=== PATIENT | female | born 1945 | race Caucasian/White ===

== ENCOUNTER 2016-02-18 11:44 | Inpatient (IN) | payer OTHER ==
--- NOTE | 2016-02-18 12:14 | PROVIDER DOCUMENTATION ---
HPI-Respiratory General - General Chief Complaint: Shortness of Breath Stated Complaint: PNEUMONIA Time Seen by Provider: 02/18/16 11:55 Source: patient Allergies/Adverse Reactions: Patient Allergies Allergy/AdvReac Type Severity Reaction Status Date / Time codeine [Codeine] Allergy Severe ITCHING Verified 02/18/16 12:25 Home Medications: Atorvastatin Calcium [Lipitor] 80 mg PO QPM 07/11/12 Clonazepam 0.5 mg PO QPM 07/11/12 Clopidogrel Bisulfate [Plavix] 75 mg PO QPM 07/11/12 Hydrocodone Bit/Acetaminophen [Hydrocodon-Acetaminoph 7.5-500] 1 each PO PRN PRN 07/11/12 Levothyroxine [Synthroid] 88 microgm PO QPM 07/11/12 Docusate Sodium [Colace] 100 mg PO QAM 03/05/15 Nortriptyline HCl [Pamelor] 10 mg PO QPM 03/05/15 Polyethylene Glycol 3350 [Miralax] 17 gm PO DAILY 03/05/15 - History of Present Illness-Resp Nature of Presenting Problem: 70 y/o F presents to ED cc of SOB. Pt states recently been admitted for pneumonia. Pt was discharged and has not regained all strength adn has had increased weakness since home. Pt does dialysis at home every night. Daughter states they have been leaving with pt since she has been discharged. Daughter states last night pt became confused and could not sleep. Pt states she is having pain all over. Quality of Pain: reports: aching Severity in ED: reports: mild Onset/Duration: reports: gradual Timing: reports: still present Context: denies: recent foreign travel Exposure: reports: unknown cause Cough Quality/Degree: reports: mild Episode Frequency: no prior episodes Current Respiratory Medication Therapy: Initiated see nurses note Associated Symptoms: reports: chest pain/soreness, muscle/bodyaches, shortness of breath. denies: fever/chills Similar Symptoms Previously?: Yes Recently seen or treated by another doctor?: Yes Review of Systems - Adult - REVIEW OF SYSTEMS - ADULT ROS:: ROS per family Constitutional: denies: chills, fever Cardiovascular: denies: chest pain, palpitations Respiratory: reports: cough, shortness of breath Gastrointestinal: denies: abdominal pain, diarrhea, nausea, vomiting Musculoskeletal: reports: muscle aches (all over). denies: back pain Neurological: denies: dizziness/vertigo, headache/migraines Past History - Adult - PAST MEDICAL HISTORY-ADULT Review of Records: reports: Old Records Reviewed, Nursing Assessment Review Cardiovascular: reports: CAD, HTN, hyperlipidemia, [place] Gastrointestinal: reports: GERD Genitourinary: reports: dialysis (peritoneal), ESRD Psychiatric: reports: anxiety Endocrine/Immune: reports: Diabetes, thyroid disorder (hypothyroidism) - PRIOR SURGERIES/PROCEDURES Surgical/Procedure History: reports: cholecystectomy, hysterectomy, other ( bilateral cataracts/colonoscopy) - IMMUNIZATION STATUS Childhood Immunizations: See Nurse Assessment Flu Vaccine: See Nurse Assessment - SOCIAL HISTORY Smoking: quit greater than 1 year Substance Use: denies Alcohol Use Frequency: never Living Situation: family (daughter) Physical Exam-General - PHYSICAL EXAM-ADULT Initial Vital Signs Reviewed: Yes - CONSTITUTIONAL General Appearance: appears well, alert, no apparent distress - EYES Eyes: PERRL/EOMI, pink conjunctivae - HEAD, EARS, NOSE, MOUTH & THROAT HENMT: normocephalic/atraumatic, moist mucous membranes, normal ENT inspection - NECK Neck: non-tender, full range of motion - RESPIRATORY Respiratory: chest non-tender, increased rate - CARDIOVASCULAR Cardiovascular: normal peripheral pulses, tachycardia - CHEST (BREASTS) Chest/Breast: deferred - GASTROINTESTINAL (ABDOMEN) Abdominal Exam: normal bowel sounds, non tender, soft - LYMPHATIC Lymphatic: no adenopathy - MUSCULOSKELETAL Back Exam: normal inspection, no CVA tenderness, no vertebral tenderness Extremity: normal range of motion, pedal edema - SKIN Integumentary: normal color, normal turgor - NEUROLOGIC Neurologic: promotions intern II-XII nml as tested, grossly normal - PSYCHIATRIC Psych/Mental Status: oriented x 3 Progress - PLAN OF CARE/RESULTS Progress/Plan/Lab Results: PLAN: LAB WORK, CHEST XRAY. 1305- DR SHAW NOTIFIED PT QUALIFIES FOR SEPSIS PROTOCOL. Laboratory Tests 02/18/16 02/18/16 02/18/16 12:09 12:09 12:09 WBC 13.57 H RBC 5.03 Hgb 15.0 Hct 45.6 MCV 90.7 MCH 29.8 MCHC 32.9 L RDW Std Deviation 15.4 H Plt Count 210 MPV 12.1 H Immature Gran % (Auto) 0.1 Neut % (Auto) 85.5 H Lymph % (Auto) 8.6 L [place] % (Auto) 5.1 Eos % (Auto) 0.3 Baso % (Auto) 0.4 Immature Gran # (Auto) 0.02 Neut # 11.59 H Lymph # 1.17 L [place] # 0.69 H Eos # 0.04 Baso # 0.06 Segmented Neutrophils 86 H Lymphocytes 12 L Monocytes 2 PT INR PTT (Actin FS) Specimen Type Sample Site pH pCO2 pO2 HCO3 Base Excess Oxyhemoglobin ABG O2 Sat (Calculated) ABG O2 Saturation ABG Carboxyhemoglobin ABG Methemoglobin Alexandro Test A-a O2 Difference Total Hemoglobin Lactate Liter Flow Blood Gas Modality FiO2 % Sodium 130 L Potassium 4.6 Chloride 89 L Carbon Dioxide 23 L Anion Gap 18 BUN 39 H Creatinine 2.7 H Estimated GFR/1.73 m2 17 BUN/Creatinine Ratio 14 Glucose 383 H Calculated Osmolality 286 Calcium 9.0 Magnesium Total Bilirubin 0.57 AST 22 ALT 24 Alkaline Phosphatase 121 H Creatine Kinase 33 Troponin T Hzw-[id number]-Rzjlichlkfb Pept Total Protein 6.8 Albumin 3.2 L Globulin 3.6 Albumin/Globulin Ratio 0.9 Plasma Lactate 2.5 H 02/18/16 02/18/16 02/18/16 12:09 12:09 12:09 WBC RBC Hgb Hct MCV MCH MCHC RDW Std Deviation Plt Count MPV Immature Gran % (Auto) Neut % (Auto) Lymph % (Auto) [place] % (Auto) Eos % (Auto) Baso % (Auto) Immature Gran # (Auto) Neut # Lymph # [place] # Eos # Baso # Segmented Neutrophils Lymphocytes Monocytes PT 11.4 INR 1.07 PTT (Actin FS) 25.2 Specimen Type Sample Site pH pCO2 pO2 HCO3 Base Excess Oxyhemoglobin ABG O2 Sat (Calculated) ABG O2 Saturation ABG Carboxyhemoglobin ABG Methemoglobin Alexandro Test A-a O2 Difference Total Hemoglobin Lactate Liter Flow Blood Gas Modality FiO2 % Sodium Potassium Chloride Carbon Dioxide Anion Gap BUN Creatinine Estimated GFR/1.73 m2 BUN/Creatinine Ratio Glucose Calculated Osmolality Calcium Magnesium Total Bilirubin AST ALT Alkaline Phosphatase Creatine Kinase Troponin T 0.081 Kvu-C-Aqezewjsdwr Pept > 15541 H Total Protein Albumin Globulin Albumin/Globulin Ratio Plasma Lactate 02/18/16 02/18/16 12:09 13:11 WBC RBC Hgb Hct MCV MCH MCHC RDW Std Deviation Plt Count MPV Immature Gran % (Auto) Neut % (Auto) Lymph % (Auto) [place] % (Auto) Eos % (Auto) Baso % (Auto) Immature Gran # (Auto) Neut # Lymph # [place] # Eos # Baso # Segmented Neutrophils Lymphocytes Monocytes PT INR PTT (Actin FS) Specimen Type ARTERIAL Sample Site R RADIAL pH 7.41 pCO2 34 L pO2 72 HCO3 23.0 Base Excess -2.3 Oxyhemoglobin 93.1 L ABG O2 Sat (Calculated) 19.0 ABG O2 Saturation 97.2 ABG Carboxyhemoglobin 2.60 H ABG Methemoglobin 1.6 H Alexandro Test YES A-a O2 Difference 85.0 Total Hemoglobin 14.5 Lactate 2.70 H Liter Flow 2.0 Blood Gas Modality CANNULA FiO2 % 28.0 Sodium Potassium Chloride Carbon Dioxide Anion Gap BUN Creatinine Estimated GFR/1.73 m2 BUN/Creatinine Ratio Glucose Calculated Osmolality Calcium Magnesium 1.7 Total Bilirubin AST ALT Alkaline Phosphatase Creatine Kinase Troponin T Tex-R-Epcivllrfsu Pept Total Protein Albumin Globulin Albumin/Globulin Ratio Plasma Lactate Orders Category Date Time Status Cardiac Monitoring DIRECTED Care 02/18/16 11:50 Active IV Insertion ORDERED Care 02/18/16 11:50 Active Notify MD of + Sepsis Screen NOW Care 02/18/16 11:50 Active CHEST-PORTABLE [RAD] Stat Exams 02/18/16 11:50 Taken ABG [RESP] Routine Lab 02/18/16 13:11 Completed BLOOD CULTURE [BLDCUL] Stat Lab 02/18/16 12:19 Results BNP [PRO B-NATRIURETIC PEPTIDE] Stat Lab 02/18/16 12:09 Completed CBC WITH DIFF [HEME] Stat Lab 02/18/16 12:09 Completed CK PROFILE [SP CHEM] Stat Lab 02/18/16 12:09 Completed COMPREHENSIVE METABOLIC PANEL [CHEM] Stat Lab 02/18/16 12:09 Completed LACTATE, PLASMA [CHEM] Stat Lab 02/18/16 12:09 Completed MAGNESIUM [CHEM] Stat Lab 02/18/16 12:09 Completed PROTIME WITH INR [COAG] Stat Lab 02/18/16 12:09 Completed PTT [COAG] Stat Lab 02/18/16 12:09 Completed TROPONIN T Stat Lab 02/18/16 12:09 Completed URINALYSIS W/POSS RFLX CULT [URINALYSIS] Stat Lab 02/18/16 11:50 Uncollected CefTRIAXONE 1 GM/NS [Rocephin 1 gm/Ns] 50 ml Med 02/18/16 13:12 Discontinued IV NOW Haloperidol Lactate [Haldol] Med 02/18/16 14:08 Discontinued 5 mg IM NOW ONE Levofloxacin 500 mg/D5w [Levaquin 500 mg/D5w] 100 ml Med 02/18/16 13:12 Discontinued IV NOW Lorazepam [Ativan] Med 02/18/16 12:32 Discontinued 1 mg IV NOW ONE Oxygen Device Stat Oth 02/18/16 11:50 Active EKG [EKG] Stat Ther 02/18/16 11:52 Draft Vital Signs - 24 hr 02/18/16 02/18/16 11:47 12:46 Temperature 97.8 F Pulse Rate 103 H 102 H Respiratory 24 20 Rate Blood Pressure 140/94 159/100 O2 Sat by Pulse 95 Oximetry - EKG 1 Time of EKG reading by physician:: 12:11 EKG Read and Signed by:: Phuong Shaw EKG Interpretation (*Must complete 3 of following elements*): Abnormal Rate: 101 Rhythm: sinus tachy w/ frequent ventricular-paced complexes &frequent prematur vent [place]: left UT Interval: normal ST Wave: normal - CONSULTS/PCP/HOSPITALIST Notification #1 *Consult/PCP/Hospitalist*: (hospitalist) Time Discussed: 15:33 Consult Disposition: Admit Departure - Departure Time of Disposition Order: 14:50 DIAGNOSIS: SOB (shortness of breath) Fluid overload Qualifiers: Hypervolemia type: unspecified Qualified Code(s): E87.70 - Fluid overload, unspecified Disposition: ADMITTED INPATIENT 09 Certified Medical Emergency: Emergent Condition: Stable Referrals: Bryce Dutta [Primary Care Provider] - Attestation - Scribe Verification/Attestation Scribe:: Jessica Huerta Acting as Scribe for:: Phuong Shaw Scribe documention review:: This chart was documented by a scribe and accurately reflects the service the provider performed and the decisions made by the provider.
[2016-02-18] MEDS ORDERED: ATIVAN IV ONE (12:32)
[2016-02-18 12:35] LABS: BASO% 0.4 % (0.0-0.8); EOS# 0.04 X1000 (0.0-0.7); EOS% 0.3 % (0.0-10.0); HEMATOCRIT 45.6 % (37.0-47.0); IMM GRAN# 0.02 X1000 (0.0-0.04); IMM GRAN% 0.1 % (0.0-0.5); LYMPH# 1.17 X1000 (1.2-3.4); LYMPH% 8.6 % (20.5-51.1); MANUAL DIFF NEEDED? YES; MCH 29.8 PG (27-31); MCHC 32.9 g/dL (33-37); MCV 90.7 FL (81-99); MONO# 0.69 X1000 (0.11-0.59); MONO% 5.1 % (1.7-9.3); MPV 12.1 FL (7.4-10.4); NEUT% 85.5 % (42.2-75.2); PLT 210 X1000 (130-400); RBC 5.03 XMIL (4.2-5.4)
[2016-02-18 12:37] LABS: INR 1.07; PROTIME 11.4 Seconds (9.2-11.7); PTT 25.2 Seconds (22.0-36.0)
[2016-02-18 12:53] LABS: ALBUMIN 3.2 g/dL (3.5-5.0); POTASSIUM 4.6 mmol/L (3.5-5.1); TOTAL BILIRUBIN 0.57 mg/dL (0.20-1.00); TOTAL PROTEIN 6.8 g/dL (6.3-8.3)
[2016-02-18 12:57] LABS: LYMPHS 12 % (21-51); MONO 2 % (1-9)
[2016-02-18] MEDS ORDERED: ROCEPHIN 1 GM/NS 50 ML IV ONE (13:12)
[2016-02-18] MEDS ORDERED: LEVAQUIN 500 MG/D5W 100 ML IV ONE (13:12)
[2016-02-18 13:25] LABS: ALLEN TEST YES; BE -2.3 mmoll (-3.0-3.0); BLOOD TYPE ARTERIAL; DRAW SITE R RADIAL; METHB 1.6 % (0.0-1.5); PCO2(98.6) 34 mmHg (35-45); PO2(98.6) 72 mmHg (60-100); SAMPLE BLOOD; SAO2 97.2 % (95.0-100.0); THB 14.5 g/dL (11.5-17.4); pH(98.6) 7.41 (7.35-7.45)
[2016-02-18 13:29] LABS: MODALITY CANNULA
[2016-02-18] MEDS ORDERED: HALDOL IM ONE (14:08)
--- NOTE | 2016-02-18 14:52 | EKG Report ---
Test Performed on : 02/18/2016 12:10:29 PM Test Reason : sob Blood Pressure : / mmHG Vent. Rate : 098 BPM Atrial Rate : 098 BPM P-R Int : 172 ms QRS Dur : 092 ms QT Int : 358 ms P-R-T Axes : 016 -32 102 degrees QTc Int : 457 ms Sinus rhythm. with frequent premature ventricular complexes. Left axis deviation Left ventricular hypertrophy with repolarization abnormality Cannot rule out Septal infarct , age undetermined Abnormal ECG When compared with ECG of 18-FEB-2016 12:09, (Unconfirmed) Sinus rhythm. has replaced Electronic ventricular pacemaker Unconfirmed Result
[2016-02-18] MEDS ORDERED: VANCOMYCIN IV PER PHARMACY MISC SCH (16:30)
--- NOTE | 2016-02-18 17:21 | Diag Imaging Result Document ---
PROCEDURE NAME: CHEST-PORTABLE - 02/18/2016 PORTABLE CHEST X-RAY: COMPARISON: 01/18/2016. FINDINGS: Stable left-sided dual-chamber pacemaker. Stable cardiomegaly. There is worsening of the right pleural effusion. There is worsening central pulmonary vascular congestion and pulmonary edema. IMPRESSION: Significant worsening from prior.
--- NOTE | 2016-02-18 17:31 | HISTORY AND PHYSICAL ---
GRAVURE PRESS OPERATOR: Dr. Engel. CHIEF COMPLAINT: Altered mental status, agitation and shortness of breath. HISTORY OF PRESENT ILLNESS: Mrs. Parry is a 70-year-old female, known to our service. She has a history of ESRD on peritoneal dialysis, she also has severe systolic congestive heart failure with an EF of 20%-30% as well as multiple other medical problems, who presents today because she has become agitated at home, complaining of shortness of breath and lower extremity edema. Patient herself is unable to give any type of reliable history given her mental status, her daughter at the bedside states that over the past 24-48 hours the patient has been more confused, becoming more agitated, and states she feels like she cannot catch her breath. She was recently discharged from our service with pneumonia felt to be probable aspiration secondary to diffuse esophageal spasms which was discovered on barium swallow study. Unfortunately, at that time, the patient refused any type of treatment for her esophageal spasms, she was subsequently discharged to [facility] rehab on discharge. Since that time, patient has been becoming more weak and ultimately yesterday and today she is agitated, complaining of shortness of breath. There has been no real fevers or chills to speak of. She has had worsening lower extremity edema and she cannot lay flat without getting short of breath. When she came to the ER she was noted to have leukocytosis. Her blood gas was interestingly fairly normal with the exception of an elevated lactate and her chemistry shows mild hyponatremia and a lactic acid of 2.5. Chest x-ray shows diffuse pulmonary edema and questionable infiltrate in the right lower lobe. We are going to admit the patient now for sepsis, pneumonia, and altered mental status. PAST MEDICAL HISTORY: 1. Severe systolic congestive heart failure with a known EF of 25% per echo last month. 2. CAD. 3. Type 2 diabetes, requiring insulin. 4. ESRD on peritoneal dialysis, followed by Dr. Engel. 5. Hyperlipidemia. 6. GERD. 7. Anxiety. 8. Hypothyroidism. 9. Esophageal spasms. 10. Medical noncompliance. SURGICAL HISTORY: Cholecystectomy, hysterectomy, cataract removal, peritoneal catheter placement, and permanent pacemaker placement. SOCIAL HISTORY: The patient quit smoking around a year ago. She is . She has had her family staying with her over the past several nights, but she does live alone. FAMILY HISTORY: Noncontributory. ALLERGIES: Codeine. HOME MEDICATIONS: Lipitor 80 mg at night. Klonopin 0.5 mg every evening. Plavix 75 mg p.o. every evening. Colace 100 mg every morning. [place] 7.5 every 6 hours as needed. Synthroid 88 mcg daily. Nortriptyline 10 mg every evening. MiraLAX 17 g daily. Albuterol nebs every 2-4 hours as needed. Celexa 20 mg at bedtime. Flexeril 10 mg every 12 hours as needed. Levemir 10 units subcutaneous twice daily. Ativan 1 mg three times daily as needed. Procardia 10 mg p.o. three times daily, and Protonix 40 mg daily. REVIEW OF SYSTEMS: Essentially unable to obtain. PHYSICAL EXAMINATION: VITAL SIGNS: Blood pressure is 143/110, heart rate 110, respiratory rate 22, O2 saturation 97% on 2 L. Temperature is 97.8 degrees. GENERAL: This is a chronically ill and agitated appearing 76-year-old female, sitting up in bed in mild to moderate distress. NEUROLOGIC: The patient is dazed. She is unable to answer a few orientation questions correctly but she follows commands without focal deficits. HEENT: Head is atraumatic, normocephalic. Pupils are equal, round, and reactive to light. Oral mucosa is moist. NECK: Trachea is midline. CHEST: Diminished at the bases, right greater than left. Occasional crackles in the right lung base, and overall diminished lung entry. CARDIOVASCULAR: Tachycardic, but regular. S1-S2 is noted. GASTROINTESTINAL: Soft, nondistended, nontender. Bowel sounds are positive. EXTREMITIES: A 2+ pitting edema bilaterally. Diminished pulses. DIAGNOSTIC DATA: Official chest x-ray read is pending. WBC 13.57, hemoglobin 15, hematocrit 45.6, platelet count 210,000, PTT 11.4, INR 1.07. ABG on 2 L nasal cannula, pH 7.41, CO2 34, PO2 72, oxyhemoglobin 93.1, lactate 2.7, bicarb 23, sodium 130, potassium 4.6, chloride 89, CO2 23, anion gap 18, BUN 39, creatinine 2.7, glucose 383, calcium 9, magnesium 1.7, bilirubin 0.57, AST 22, ALT 24, alkaline phosphatase 121. Troponin 0.081. ProBNP greater than 35,000. Lactate 2.5. ASSESSMENT AND PLAN: 1. Metabolic encephalopathy: Likely secondary to pneumonia, sepsis. We are going to check a head CT and a chest CT. We will also check another lactic acid, ammonia level, drug screen, alcohol level, and monitor. 2. Acute respiratory failure: Likely a combination of pneumonia as well as acute on chronic systolic heart failure. Again we are going to check a CT, she will need dialysis per Dr. Engel. We will continue her home medications. Rule out myocardial infarction with cardiac enzymes and treat her healthcare acquired pneumonia. 3. Healthcare-acquired pneumonia: Patient has had multiple hospital visits recently. We will add vancomycin for MRSA coverage and Zosyn for broad-spectrum coverage as well. We will continue breathing treatments, and check a chest CT. 4. Hypervolemic hyponatremia: Will ask Dr. Engel to continue hemodialysis for fluid volume management. Monitor her sodium. 5. Acute on chronic systolic heart failure: Patient will need dialysis in place of diuresis. Dr. Engel will manage this and we will continue her home medications. Rule out myocardial infarction with cardiac enzymes. 6. Sepsis: Patient meets criteria for severe sepsis with leukocytosis, tachycardia, and elevated lactic acid, she is hemodynamically stable. Blood cultures have been obtained. We will also obtain sputum cultures and add broad-spectrum antibiotics. 7. Diabetes mellitus: Continue her home insulin and add pattern sugars and sliding scale insulin. 8. Diffuse esophageal spasms. Will continue her Protonix. 9. Anxiety and depression: Continue her home medications, chronic and stable. 10. Gastrointestinal and deep vein thrombosis prophylaxis are provided with Protonix and heparin given her renal failure. Further recommendations to follow. Dictated by MONTY Nelson for Abelardo Fonseca MD
[2016-02-18] MEDS ORDERED: VANCOMYCIN 1 GM/NS 250 ML IV SCH (18:00)
[2016-02-18] MEDS ORDERED: LASIX IV ONE (18:32)
--- NOTE | 2016-02-18 18:55 | CONSULTATION ---
DATE OF CONSULTATION: 02/18/2016 REASON FOR ADMISSION: Altered mental status. Shortness of breath, fluid overload, pneumonia. CONSULTING PHYSICIAN: Abelardo Fonseca MD. REASON FOR CONSULTATION: Medical management assist and ESRD management. HISTORY OF PRESENT ILLNESS: This is a 70-year-old female, known to our service for end-stage renal disease on peritoneal dialysis with severe congestive heart failure and ejection fraction 20- 30% with multiple medical problems. The patient has been recently admitted to the hospital with a protracted hospitalization secondary to pneumonia and decreased physical mobility. The patient eventually went to rehab and then now is at home with home health. Her daughter is staying with her and assisting her with her peritoneal dialysis needs. The daughter states that the patient has become extremely anxious over the last week or so, and does not rest at all. Her fluid volumes have gotten worse during this time, and she was then transitioned over to 4.25 and 2.5 dextrose bags at night to assist with her fluid volume. Her volume has gotten worse and she now has severe lower extremity swelling. The patient's anxiety level has increased exponentially over the last several days and now the patient can barely sit in the bed and even assist with exam. The patient did have a chest x-ray that showed diffuse pulmonary edema with questionable infiltrate in the right lobe. She had a white count of 13.5. Her PD fluid has been clear. She is awaiting bed assignment. PAST MEDICAL HISTORY: End-stage renal disease on peritoneal dialysis. Severe systolic congestive heart failure. EF 25%. Coronary artery disease. Type 2 diabetes. Hyperlipidemia, GERD, anxiety, hypothyroidism, esophageal spasms and medical noncompliance. SURGICAL HISTORY: Cholecystectomy, hysterectomy, cataract removal, peritoneal catheter placement and permanent catheter placement. ALLERGIES: Codeine. HOME MEDICATIONS: Lipitor, Klonopin, Plavix, Colace, Ace, Synthroid, nortriptyline, MiraLAX, albuterol, Ativan, Procardia and Protonix. FAMILY HISTORY: Noncontributory. SOCIAL HISTORY: A previous smoker. Family stays with her. No illicit drug use or ETOH. REVIEW OF SYSTEMS: Significant shortness of breath. Lower extremity edema, and severe anxiety. PHYSICAL EXAMINATION: Vital Signs: Temperature 97.8, pulse 106, respiratory rate 22, blood pressure 159/90. General: This is a chronically ill-appearing female sitting in bed. She is extremely anxious.. She keeps trying to get off the stretcher. She is continually pulling covers up over her and throwing them off. She is asking for medication for her anxiety. HEENT: Normocephalic, atraumatic. ANGIE, her oral mucosa is moist. Neck: Supple. Trachea is midline. She has positive JVD. Cardiovascular: Regular rate and rhythm. No gallop or murmur appreciated. Pulmonary: She has some decreased breath sounds bilaterally. She is tachypneic with some rhonchi or rales noted. No overt wheeze. : Not inspected. She has minimal void with peritoneal dialysis assist. Abdomen: Soft, with positive bowel sounds. PD catheter intact. Extremities: 2 to 3+ pretibial edema that extends up the knees to thighs. No weeping is noted. She is moving all extremities. Integumentary: Skin is warm and dry. Otherwise without rash or lesion. Neuro: Grossly nonfocal aside from significant agitation. LAB DATA: WBC of 13.5, hemoglobin 15, hematocrit 45.6, and platelet count of 210. Sodium 130, potassium 4.6, CO2 of 23, BUN 39, creatinine 2.7, glucose 383, calcium 9.0. Albumin 3.2. Lactate 2.5. Chest x-ray with worsening of right pleural effusion. Worsening central pulmonary vascular congestion and pulmonary edema. ASSESSMENT AND PLAN: 1. End-stage renal disease management. I will have the dialysis nurse set her up on the cycler overnight. Because of her worsening edema and the x-ray findings, we will go ahead and run her on all 4.25% Dianeal solution overnight on continuous cycle until morning in an effort to pull off some fluid. The patient has severe congestive heart failure and cardiomegaly and unclear if this patient would tolerate hemodialysis in the future. Further decisions will be made by Dr. Engel. 2. Acute respiratory failure, pneumonia along with fluid volume. Further workup in progress. Vancomycin, Rocephin and Levaquin have already been ordered. She has had 1 dose each. Further doses have not been placed into the computer. These would need to be dosed according to her renal function. 3. Health-care acquired pneumonia, see above. 4. Sepsis. Followed by primary. 5. Electrolytes, acid-base balance. These are acceptable. Again, we will dialyze tonight. 6. Blood pressure: Home medications to be restarted by primary. Thank you for the consult. Dictated by MONTY Pedraza for Cy Engel MD
[2016-02-18] MEDS ORDERED: DUONEB (A & A) INH PRN (18:56)
[2016-02-18] MEDS ORDERED: APRESOLINE IV PRN (18:56)
[2016-02-18] MEDS: DUONEB (A & A) INH SCH ×2 (19:45→22:50)
[2016-02-18] MEDS: ZOSYN 2.25 GM/NS 50 ML IV SCH (20:08)
[2016-02-18] MEDS: PROCARDIA PO SCH (20:08)
[2016-02-18] MEDS: NORCO-5 PO ONE ×2 (20:09→20:29)
[2016-02-18] MEDS: HEPARIN SUBQ SCH (20:12)
[2016-02-18] MEDS: CELEXA PO SCH (20:13)
[2016-02-18] MEDS: SYNTHROID PO SCH (20:13)
[2016-02-18] MEDS: LIPITOR PO SCH (20:13)
[2016-02-18] MEDS: PLAVIX PO SCH (20:13)
[2016-02-18] MEDS: KLONOPIN PO SCH (20:13)
[2016-02-18] MEDS: LEVEMIR SUBQ SCH (20:14)
[2016-02-18] MEDS: HUMALOG SUBQ SCH (20:47)
[2016-02-18] MEDS: PAMELOR PO SCH (20:53)
[2016-02-19] MEDS: ATIVAN PO PRN ×3 (01:01→14:34)
[2016-02-19] MEDS: DUONEB (A & A) INH SCH ×6 (03:45→23:27)
[2016-02-19] MEDS: ZOSYN 2.25 GM/NS 50 ML IV SCH ×3 (03:46→14:34)
[2016-02-19] MEDS ORDERED: ASPIRIN PO STA (05:12)
[2016-02-19] MEDS: HUMALOG SUBQ SCH ×4 (06:18→20:45)
[2016-02-19 06:42] LABS: HEMATOCRIT 40.7 % (37.0-47.0); HEMOGLOBIN 13.6 g/dL (12.0-16.0); MCH 29.8 PG (27-31); MCHC 33.4 g/dL (33-37); MCV 89.1 FL (81-99); MPV 12.5 FL (7.4-10.4); RBC 4.57 XMIL (4.2-5.4)
[2016-02-19 06:56] LABS: CALCIUM 9.1 mg/dL (8.8-10.2); POTASSIUM 3.6 mmol/L (3.5-5.1)
--- NOTE | 2016-02-19 07:41 | Diag Imaging Result Document ---
PROCEDURE NAME: HEAD W/O CONTRAST - 02/18/2016 CT OF THE HEAD WITHOUT CONTRAST: FINDINGS: There are dense calcifications in the internal carotid arteries bilaterally. There is a fairly well circumscribed apparently extra-axial mass arising from the area of the right sphenoid wing and clinoid region. This is slightly hyperdense. No contrast was administered. The mass measures 3.1 x 2.8 cm. There is some mass effect displacing the right lateral ventricle anteriorly and to the midline. The third ventricle is also somewhat displaced across the midline. There is generalized cerebral and cerebellar atrophy. No evidence of bleed is present. There are no previous studies. IMPRESSION: Apparently extra-axial mass on the right in the perisellar region as described. This may represent a meningioma or less likely a giant aneurysm. Further evaluation with contrast and/or MRI is recommended.
--- NOTE | 2016-02-19 07:51 | Diag Imaging Result Document ---
PROCEDURE NAME: CT THORAX W/O CONTRAST - 02/18/2016 CT OF THE CHEST WITHOUT CONTRAST: FINDINGS: There is considerable motion artifact. Compared to the previous study of 01/08/2016 there has been marked improvement in the pulmonary opacities in the upper lobes. There is still considerable pleural fluid bilaterally. There is left ventricular enlargement and left atrial enlargement. There is extensive coronary calcification and numerous calcified nodes are present in the mediastinum and right hilum. There appears to be less fluid in the right subphrenic space than on the previous study. IMPRESSION: 1. Improved pneumonia and ascites. 2. Bilateral pleural effusions.
[2016-02-19] MEDS: PROTONIX PO SCH (08:42)
[2016-02-19] MEDS: HEPARIN SUBQ SCH ×2 (08:42→20:15)
[2016-02-19] MEDS: PROCARDIA PO SCH ×3 (08:42→17:18)
[2016-02-19] MEDS: COLACE PO SCH (08:42)
[2016-02-19] MEDS: LEVEMIR SUBQ SCH ×2 (08:43→20:44)
[2016-02-19] MEDS: MIRALAX PO SCH (09:36)
--- NOTE | 2016-02-19 10:16 | PROGRESS NOTE ---
DATE: 02/19/2016 SUBJECTIVE: Ms Parry is sleeping in the bed on her right side. She states she feels better with less shortness of breath than last evening. She had an oral Ativan about 1 hour ago. She denies cough or wheezing, fevers or chills. Appetite is low. OBJECTIVE: Vital Signs: Blood pressure 149/55, heart rate 89, respirations 20, temperature 99.2 degrees. Intake and output are incomplete. She had 2 L of ultrafiltration by dialysis last night. General: Chronically ill woman, no acute distress. Skin: Warm and dry. Eyes: Conjunctivae are pink. Pupils are equal. Neck: Neck veins are not distended. Trachea is midline. Heart: Regular with a gallop. Lungs: Have equal breath sounds. Tubular breath sounds on the right. No crackles. No wheezes. Abdomen: Soft, nontender. Bowel sounds are present. Extremities: Have 1+ edema. No clubbing or cyanosis. LABORATORY DATA: Sodium 136, potassium 3.6, chloride 95, bicarbonate 23, BUN 35, creatinine 2.7, hemoglobin 13.6. IMPRESSION: 1. Shortness of breath: Improved. CT demonstrated improvement in her pneumonia over the last 2 months. Effusions are present, but small. No pulmonary edema. We will continue to attempt aggressive ultrafiltration with dialysis overnight, and then try to get her up and start ambulating tomorrow. She is significantly improved with the Ativan. 2. End-stage renal disease. Plan as above. 3. Electrolytes/acid base/anemia/hypertension. Acceptable.
--- NOTE | 2016-02-19 12:51 | EKG Report ---
Test Performed on : 02/19/2016 08:23:57 AM Test Reason : NSTEMI Blood Pressure : / mmHG Vent. Rate : 091 BPM Atrial Rate : 091 BPM P-R Int : 206 ms QRS Dur : 110 ms QT Int : 396 ms P-R-T Axes : 113 -40 125 degrees QTc Int : 487 ms Sinus rhythm. with occasional premature ventricular complexes. Left axis deviation Left ventricular hypertrophy with repolarization abnormality Abnormal ECG When compared with ECG of 18-FEB-2016 12:10, (Unconfirmed) Minimal criteria for Septal infarct are no longer present T wave inversion more evident in Lateral leads Confirmed by Eduardo Kim MD ([id number]) on 02/19/2016 1:07:07 PM
[2016-02-19 14:20] LABS: URINE CULTURE NEEDED? NO; URINE MICRO REVIEW NEEDED? NO; URINE SOURCE CLEAN CATCH
[2016-02-19 14:32] LABS: BILIRUBIN URINE NEGATIVE (NEGATIVE); BLOOD URINE TRACE (NEGATIVE); COLOR YELLOW; GLUCOSE URINE 500 mg/dL (NEGATIVE); LEUKOCYTES URINE NEGATIVE (NEGATIVE); NITRITE URINE NEGATIVE (NEGATIVE); PH URINE 5.5; PROTEIN URINE 70 mg/dL (NEGATIVE); SP GRAVITY URINE 1.015; TURBIDITY URINE CLEAR (CLEAR); UROBILINOGEN URINE NORMAL (NORMAL)
[2016-02-19 14:33] LABS: UR EPITHELIAL CELLS <10 /HPF (<10); URINE BACTERIA NEGATIVE /HPF; URINE RBC <10 /HPF (<10); URINE WBC <10 /HPF (<10)
--- NOTE | 2016-02-19 17:23 | PROGRESS NOTE ---
DATE: 02/19/2016 SUBJECTIVE: Today, Ms. Parry referred to be doing a whole lot better. I saw her. She was actually sleeping very quietly in her bed. OBJECTIVE: Vital signs: Blood pressure is 134/77, pulse of 89, respirations 23, temperature is 97.8. General: Ms. Parry is a 70-year-old, female. She was in bed. She did not seem to be in any distress as yesterday. HEENT: Mucosa is pink and moist. Anicteric. Acyanotic. Neck: Supple. Chest: Air entry is bilaterally reduced. There are bilateral crepitations. Cardiovascular: Regular rate and rhythm. There is a 3/6 TR murmur. Abdomen: Soft, nontender. Extremities: 2+ pedal edema. 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 LABORATORY DATA: WBC is 8.93. Hemoglobin is 13.6, platelet count of 172. Chemistry reviewed. Creatinine is 2.7 consistent with kidney failure. I's and O's: Output of dialysis was 1973. A CT scan of the chest showed improved pneumonia, and ascites, bilateral pleural effusions. A CT scan of the head showed apparent extraaxial mass in the right parasellar region which may represent a meningioma or less likely a giant aneurysm. ASSESSMENT: 1. Acute hypoxemic respiratory failure secondary to pulmonary edema, as well as pleural effusions. 2. Fluid overload, likely due to insufficient peritoneal dialysis. 3. End-stage renal disease on peritoneal dialysis. 4. History of recent pneumonia. A CT scan has revealed that this is resolved. We will therefore discontinue the antibiotics. 5. Hyponatremia. Likely related to the kidney function, stable. 6. Mildly elevated troponins. EKG is negative for any ST-segment abnormalities. I think this is probably just subendocardial ischemia. We will keep trending this. Patient is already on anti-ischemic, and anti-platelet medication including clopidogrel. 7. Diffuse esophageal spasms. Patient is on Protonix and nifedipine. 8. Anxiety and depression noted. 9. Recent newly diagnosed extraaxial mass in the brain, most likely meningioma. We will order an MRI of the brain, to have a better image picture of the mass. 10. End-stage renal disease on peritoneal dialysis. GENERAL PLAN: I think patient is doing a whole lot better. We will keep trending the troponins. Will repeat an EKG tomorrow morning. We will continue with peritoneal dialysis. Nephrology is on board. We are going to continue with recommendations from Nephrology on the dialysis schedules. I will discontinue the antibiotics, since I do not think she currently has any infectious disease and the CT scan of the lungs reveals resolution of the previous pneumonia.
[2016-02-19] MEDS: CELEXA PO SCH (20:07)
[2016-02-19] MEDS: SYNTHROID PO SCH (20:07)
[2016-02-19] MEDS: KLONOPIN PO SCH (20:07)
[2016-02-19] MEDS: PAMELOR PO SCH (20:08)
[2016-02-19] MEDS: PLAVIX PO SCH (20:08)
[2016-02-19] MEDS: LIPITOR PO SCH (20:08)
[2016-02-20] MEDS: ATIVAN PO PRN ×2 (01:11→07:05)
[2016-02-20] MEDS: DUONEB (A & A) INH SCH ×4 (04:13→19:17)
[2016-02-20] MEDS: MORPHINE IV PRN ×5 (04:37→19:45)
[2016-02-20 06:30] LABS: HEMATOCRIT 38.3 % (37.0-47.0); HEMOGLOBIN 12.6 g/dL (12.0-16.0); MCH 29.9 PG (27-31); MCHC 32.9 g/dL (33-37); MPV 12.2 FL (7.4-10.4); RBC 4.21 XMIL (4.2-5.4)
[2016-02-20] MEDS: HUMALOG SUBQ SCH ×4 (06:36→21:17)
[2016-02-20 06:52] LABS: CALCIUM 8.4 mg/dL (8.8-10.2); POTASSIUM 2.8 mmol/L (3.5-5.1)
[2016-02-20] MEDS: KLOR-CON PO SCH ×2 (08:24→21:00)
[2016-02-20] MEDS: PROTONIX PO SCH (08:25)
[2016-02-20] MEDS: MIRALAX PO SCH (08:25)
[2016-02-20] MEDS: PROCARDIA PO SCH ×3 (08:25→17:26)
[2016-02-20] MEDS: HEPARIN SUBQ SCH ×2 (08:25→20:59)
[2016-02-20] MEDS: COLACE PO SCH (08:25)
[2016-02-20] MEDS: LEVEMIR SUBQ SCH ×2 (08:27→21:16)
[2016-02-20] MEDS ORDERED: MAGNESIUM SULFATE 2 GM/S.W.I. 50 ML IV ONE (09:16)
[2016-02-20] MEDS ORDERED: CARDIZEM IV ONE ×2 (09:16→10:55)
[2016-02-20 09:57] LABS: MAGNESIUM 1.4 mg/dL (1.5-2.7)
--- NOTE | 2016-02-20 11:35 | PROGRESS NOTE ---
DATE: 02/20/2016 SUBJECTIVE: She is sitting up today. She has moved around some in the room. She still complains of episodic shortness of breath. OBJECTIVE: Vital Signs: Blood pressure 182/88, heart rate 108, respirations 24, temperature 88.9? Intake not recorded. Output 2.8 L. General: No acute distress. Skin: Warm and dry. Conjunctivae are pink. Neck: Neck veins are not distended. Heart: Regular with a gallop. Lungs: Have equal breath sounds. A few wheezes. Abdomen: Soft, nontender. Bowel sounds are present. Extremities: Have 1+ to 2+ edema. No clubbing or cyanosis. LABORATORY DATA: Sodium 133, potassium 2.8. Chloride 92, bicarbonate 25, BUN 26, creatinine 2.4. Hemoglobin 12.6. IMPRESSION/PLAN: 1. Volume overload. Improving. We will change to a more standard dialysis prescription today but we will do a midday exchange. Check a chest x-ray. 2. Hypokalemia. Replace. 3. End-stage renal disease. Plan as above. 4. Malnutrition and physical debilitation. We will start PT.
[2016-02-20] MEDS: POTASSIUM CHLORIDE 20 MEQ/SWI 100 ML IV SCH ×2 (12:25→16:49)
--- NOTE | 2016-02-20 12:30 | PROGRESS NOTE ---
DATE: 02/20/2016 SUBJECTIVE: This morning, I saw Ms. Parry. She was sitting up in the chair. She refers to be having difficulty breathing. Early on this morning, I was called because the telemetry had captured that her heart rate was persistently over 140. I ordered a stat EKG. I had asked the nurse to put in a stat EKG; however that has not been done yet, but the strips from telemetry shows atrial fibrillation with a rate of about 150. OBJECTIVE: Vital signs: Blood pressure is 155/90, pulse of 130, respiration is 24, and temperature is 98.9 degrees. General: Ms. Parry is a 70-year-old female. She looks emaciated. HEENT: Mucosa is pink and moist. Anicteric. Acyanotic. Neck: Supple. Chest: Air entry is bilaterally reduced. A few bibasilar crepitations. Cardiovascular: Irregularly irregular, very tachycardic. There is a generator pocket of the pacemaker on the left anterior chest wall. There is also 3/6 TR murmur. Abdomen: Soft, nontender. Extremities: About 1+ pedal edema. 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 She is oriented x4, but she is very apprehensive and very frightful. LABORATORY DATA: WBC 9.51, hemoglobin is 12.6, platelet count of 176. Chemistry: Sodium 133, potassium 2.8, chloride is 92, creatinine is 2.4, phosphorus is 1.8 and magnesium is 1.4. ASSESSMENT: 1. Acute hypoxemic respiratory failure secondary to pulmonary edema. The patient has been given a dose of Lasix. She is getting routine peritoneal dialysis and is being followed by nephrology. Patient refers to be having some difficulty breathing now. We will do a chest x- ray in the context of having atrial fibrillation now. 2. Atrial fibrillation with rapid ventricular rate. This seems to be new onset. We will order EKG. The patient has some electrolyte imbalances; we will replace all of them. We will also do a TSH to look at the thyroid status. We ordered 2 times diltiazem 10 mg intravenous twice, but that does not cut it. So, we will put a drip on her and transfer her to [facility]. 3. Electrolyte imbalance, including hyponatremia, hypokalemia and hypomagnesemia. We will replace all of these. 4. Diffuse esophageal spasms. This patient is on Protonix and nifedipine. 5. Anxiety and depression. Patient is on Celexa and also Klonopin. We have not stopped these medications. 6. Recently-diagnosed extra-axial mass in the brain, likely meningioma. We cannot do any further testing on these because patient has a pacemaker, so MRI was not able to be done. 7. Renal disease on peritoneal dialysis. Patient is being followed by nephrology and is getting dialysis here in-house. GENERAL PLAN: We are going to replace the potassium and magnesium. We will start the patient on diltiazem drip. We will transfer her from here to [facility], and we will consult cardiology. Of note, patient also came in. She did have minimally elevated troponins, but these have been normalized over the course of the days. Patient is already on anti-ischemic medications. Went back to check on patient at about 5:00pm, she was on the phone with her son. She stressed the need for more benzos but I did inform her that that will not help her in any meaningful way and might harm her on the long run. The daughter and another family member were in the room. Critical time spent was 45 minutes [facility]
[2016-02-20] MEDS: CARDIZEM 100 MG/NS 100 ML IV SCH ×2 (13:10→20:17)
[2016-02-20] MEDS ORDERED: ATIVAN IV ONE (14:02)
--- NOTE | 2016-02-20 14:57 | Diag Imaging Result Document ---
PROCEDURE NAME: CHEST-PORTABLE - 02/20/2016 AP PORTABLE CHEST AT 1200 HOURS: FINDINGS: There are bilateral pleural effusions. There appears to be more fluid on the right than on 02/18/2016. IMPRESSION: Worsening right effusion.
[2016-02-20] MEDS: ATIVAN IV PRN (18:13)
[2016-02-20 20:22] LABS: ALLEN TEST YES; BE 1.7 mmoll (-3.0-3.0); BLOOD TYPE ARTERIAL; DRAW SITE R RADIAL; METHB 1.8 % (0.0-1.5); O2(CT) 18.4 mL/dL (15.0-23.0); PCO2(98.6) 26 mmHg (35-45); PO2(98.6) 64 mmHg (60-100); SAMPLE BLOOD; SAO2 96.4 % (95.0-100.0); THB 14.2 g/dL (11.5-17.4); pH(98.6) 7.55 (7.35-7.45)
[2016-02-20 20:23] LABS: MODALITY CANNULA
--- NOTE | 2016-02-20 20:28 | CONSULTATION ---
DATE OF CONSULTATION: 02/20/2016 REASON FOR CONSULTATION: Congestive heart failure. HISTORY: Patient is a 70-year-old female who presents with progressive shortness of breath. This has been present for at least the last month. The patient states she has become very fatigued and tired from this. She denies overt chest pain. The patient has known ischemic cardiomyopathy with an ejection fraction of around 25%. She also has end-stage renal disease and has been on dialysis. PAST MEDICAL HISTORY: Patient has known coronary disease. She states that she has had stents placed in the past but this was many years ago. She has a resultant ischemic cardiomyopathy with an ejection fraction of around 25%. The patient has a history of hypertension and type 2 diabetes. She has end-stage renal disease and has been on peritoneal dialysis. She has a history of hypothyroidism and has been on thyroid replacement. She has no documented pulmonary disease. From a surgical standpoint, she has had a cholecystectomy, hysterectomy, she has had a pacemaker placed presumably for bradycardia. SOCIAL HISTORY: Patient discontinued smoking a little over a year ago. Denies alcohol or illicit drug use. FAMILY HISTORY: Noncontributory. REVIEW OF SYSTEMS: Constitutional: She has not been having fevers or chills. HEENT: No headache. No visual abnormalities. Chest: No orthopnea. No palpitations. Abdomen: No abdominal pain. No diarrhea. No constipation. Extremities: She has had swelling of the lower extremities and weakness. Neurological: No seizures, syncope or stroke. PHYSICAL EXAMINATION: General: This is a frail, elderly female. She is awake and alert and answers questions appropriately. HEENT: Benign. Neck: Supple. No obvious JVD. Chest: Bilateral breath sounds, which are decreased within the bases. Cardiovascular: Reveals a regular rate and rhythm. No gallop. Abdomen: Positive bowel sounds. Nontender, nondistended. Extremities: There is no current edema. The patient is currently negative almost 5 L the last 2 days. Currently her heart rate is in the 100s, blood pressures 150s to 180s over 80s. DIAGNOSTIC DATA: I reviewed an EKG, indicating sinus rhythm. Criteria for LVH are met. There is diffuse nonspecific T-wave flattening. I reviewed laboratory work. White count 9, hemoglobin and hematocrit 12 and 38, platelet count is 176,000. Sodium 133, potassium 2.8, chloride 92, BUN 26, creatinine 2.4, AST 22, ALT 24. Troponins serially have been 0.095 followed by 0.092 and 0.087. ProBNP is greater than 35,000. IMPRESSION: 1. Congestive heart failure. This is acute on chronic systolic congestive heart failure. The patient's volume status is primarily managed through peritoneal dialysis. I suspect that she is still markedly volume overloaded as there are bilateral pleural effusions of moderate size. We will continue with aggressive attempts at diuresis through peritoneal dialysis. From a cardiac standpoint, I would initiate patient on beta estephania therapy in the form of Coreg. If she tolerates this well then we will also add after load preload reduction with hydralazine and isosorbide. 2. Coronary artery disease. This appears medically stable. We will attempt to obtain old records from patient's primary water purification chemist, Dr. Sandra in [place]. 3. Bradycardia. The patient has a pacemaker in place. I am uncertain of the reason that this was placed. She is currently in sinus rhythm. Again, we will attempt to obtain these records. 4. End-stage renal disease on peritoneal dialysis. Patient is tolerating this well. Previously she appeared to be significantly volume overloaded. We will discuss this with renal medicine.
[2016-02-20] MEDS ORDERED: ATIVAN PO PRN (20:41)
[2016-02-20] MEDS: LIPITOR PO SCH (20:59)
[2016-02-20] MEDS: SYNTHROID PO SCH (20:59)
[2016-02-20] MEDS: COREG PO SCH (20:59)
[2016-02-20] MEDS: KLONOPIN PO SCH (21:00)
[2016-02-20] MEDS: CELEXA PO SCH (21:00)
[2016-02-20] MEDS: PLAVIX PO SCH (21:00)
[2016-02-20] MEDS: PAMELOR PO SCH (21:12)
[2016-02-20] MEDS ORDERED: NS 1,000 ML ONE ×2 (22:09→22:54)
[2016-02-20] MEDS ORDERED: NS 2,000 ML IV ONE (22:53)
[2016-02-20] MEDS ORDERED: AMIDATE ONE (23:16)
[2016-02-20] MEDS ORDERED: QUELICIN ONE (23:17)
[2016-02-20] MEDS: LEVOPHED 8 MG in D5 1/2 NS 250 ML IV SCH (23:45)
[2016-02-20] MEDS ORDERED: QUELICIN IV ONE (23:46)
[2016-02-20] MEDS ORDERED: AMIDATE IV ONE (23:48)
[2016-02-21] MEDS ORDERED: VANCOMYCIN IV PER PHARMACY MISC SCH (00:30)
[2016-02-21 00:42] LABS: URINE CULTURE NEEDED? NO; URINE MICRO REVIEW NEEDED? NO; URINE SOURCE CATH
[2016-02-21 00:58] LABS: BILIRUBIN URINE NEGATIVE (NEGATIVE); BLOOD URINE NEGATIVE (NEGATIVE); COLOR YELLOW; GLUCOSE URINE 500 mg/dL (NEGATIVE); LEUKOCYTES URINE NEGATIVE (NEGATIVE); NITRITE URINE NEGATIVE (NEGATIVE); PROTEIN URINE 100 mg/dL (NEGATIVE); SP GRAVITY URINE 1.017; TURBIDITY URINE CLEAR (CLEAR); UROBILINOGEN URINE NORMAL (NORMAL)
[2016-02-21 01:00] LABS: UR EPITHELIAL CELLS <10 /HPF (<10); URINE BACTERIA NEGATIVE /HPF; URINE RBC <10 /HPF (<10); URINE WBC <10 /HPF (<10)
[2016-02-21] MEDS: DIPRIVAN 1% 100 ML IV SCH ×3 (01:00→21:52)
[2016-02-21] MEDS ORDERED: VANCOMYCIN 1 GM/NS 250 ML IV ONE (01:00)
[2016-02-21] MEDS: DUONEB (A & A) INH SCH ×8 (01:10→23:23)
[2016-02-21 01:25] LABS: BASO% 0.1 % (0.0-0.8); EOS# 0.06 X1000 (0.0-0.7); EOS% 0.3 % (0.0-10.0); HEMATOCRIT 39.6 % (37.0-47.0); HEMOGLOBIN 12.8 g/dL (12.0-16.0); LYMPH# 0.99 X1000 (1.2-3.4); LYMPH% 5.4 % (20.5-51.1); MANUAL DIFF NEEDED? YES; MCH 29.8 PG (27-31); MCHC 32.3 g/dL (33-37); MCV 92.3 FL (81-99); MONO# 0.66 X1000 (0.11-0.59); MONO% 3.6 % (1.7-9.3); MPV 12.2 FL (7.4-10.4); NEUT% 90.6 % (42.2-75.2); PLT 209 X1000 (130-400); RBC 4.29 XMIL (4.2-5.4)
[2016-02-21] MEDS: ZOSYN 3.375 GM/NS 50 ML IV SCH ×2 (01:29→05:50)
[2016-02-21 01:35] LABS: CALCIUM 7.7 mg/dL (8.8-10.2); MAGNESIUM 1.9 mg/dL (1.5-2.7); POTASSIUM 4.9 mmol/L (3.5-5.1)
[2016-02-21] MEDS ORDERED: EPINEPHRINE 8 MG in D5W 250 ML IV SCH (01:45)
[2016-02-21 02:00] LABS: ALLEN TEST YES; BE -7.3 mmoll (-3.0-3.0); BLOOD TYPE ARTERIAL; DRAW SITE L RADIAL; METHB 1.7 % (0.0-1.5); O2(CT) 18.4 mL/dL (15.0-23.0); PCO2(98.6) 35 mmHg (35-45); PO2(98.6) 90 mmHg (60-100); SAMPLE BLOOD; SAO2 98.4 % (95.0-100.0); SRATE 12 BPM; THB 13.8 g/dL (11.5-17.4); TVOL 400 mL; pH(98.6) 7.32 (7.35-7.45)
[2016-02-21 02:03] LABS: MODALITY VENTILATOR
[2016-02-21 04:43] LABS: LYMPHS 6 % (21-51); MONO 3 % (1-9)
[2016-02-21] MEDS: LEVOPHED 8 MG in D5 1/2 NS 250 ML IV SCH ×2 (04:50→13:52)
[2016-02-21 05:25] LABS: HEMATOCRIT 39.2 % (37.0-47.0); HEMOGLOBIN 13.1 g/dL (12.0-16.0); MCH 29.8 PG (27-31); MCHC 33.4 g/dL (33-37); MCV 89.3 FL (81-99); MPV 12.5 FL (7.4-10.4); RBC 4.39 XMIL (4.2-5.4)
[2016-02-21 05:37] LABS: ALLEN TEST YES; BE -4.4 mmoll (-3.0-3.0); BLOOD TYPE ARTERIAL; DRAW SITE L RADIAL; PCO2(98.6) 39 mmHg (35-45); PO2(98.6) 138 mmHg (60-100); SAMPLE BLOOD; SRATE 12 BPM; TVOL 400 mL; pH(98.6) 7.34 (7.35-7.45)
[2016-02-21 05:38] LABS: MODALITY VENTILATOR
[2016-02-21 05:46] LABS: AGAP 18; BUN 29 mg/dL (8-22); CALCIUM 7.7 mg/dL (8.8-10.2); CHLORIDE 94 mmol/L (98-107); COSMO 285; HDL 41 mg/dL (45-65); LDL 71 mg/dL; POTASSIUM 4.4 mmol/L (3.5-5.1); SODIUM 131 mmol/L (136-145); TCO2 19 mmol/L (25-35); TRIGLYCERIDES 89 mg/dL (35-135); VLDL 18 mg/dL
[2016-02-21] MEDS: HUMALOG SUBQ SCH ×4 (06:33→21:54)
[2016-02-21] MEDS: CARDIZEM 100 MG/NS 100 ML IV SCH (07:35)
[2016-02-21] MEDS ORDERED: INSULIN PEN NEEDLES ONE (08:34)
[2016-02-21] MEDS: COLACE PO SCH ×2 (08:38→08:40)
[2016-02-21] MEDS: PROTONIX PO SCH ×2 (08:38→08:45)
[2016-02-21] MEDS: LEVEMIR SUBQ SCH ×2 (08:39→21:50)
[2016-02-21] MEDS: HEPARIN SUBQ SCH ×2 (08:39→21:49)
[2016-02-21] MEDS: MIRALAX PO SCH (08:41)
[2016-02-21] MEDS: COREG PO SCH ×2 (08:42→21:46)
[2016-02-21] MEDS: PROCARDIA PO SCH (08:42)
--- NOTE | 2016-02-21 09:01 | PROGRESS NOTE ---
DATE: 02/21/2016 Lamar Parry is a 70-year-old female who is being followed by Dr. Fonseca, hospitalist, Dr. Engel with nephrology and Dr. Avelar with Cardiology. She was admitted on 02/18/2016 for metabolic encephalopathy, acute respiratory failure secondary to pneumonia as well as chronic systolic heart failure, hypervolemic, hyponatremia and sepsis. The patient is currently receiving peritoneal dialysis at night which is being managed by Dr. Engel. On most recent progress note by Dr. Fonseca, patient was noted to have new onset atrial fibrillation with RVR and was placed on a Cardizem drip. This evening the patient's nurse on [facility] notified us that the patient was becoming more anxious and that her blood pressure had been dropping. Cheyenne reported also that upon her arrival and receiving the patient tonight that the Cardizem drip was at 20 mg per hour. She did reduce that down over the beginning part of the shift to 5, though the patient' s blood pressure continued to decrease. Just prior to this the patient also did receive her scheduled night time medicines, Ativan 1 mg at 1813, Celexa 20 mg at 2100, Klonopin 0.5 mg at 2100, and morphine 2 mg at 1945. The patient also was receiving peritoneal dialysis during this time period as well. Cheyenne notified us that the patient's systolic blood pressure was in the 50s. Her heart rate was maintained in the 80s at this time though they did place her in Trendelenburg though this did not improve her blood pressure. Also her oxygen saturation was in the 70s. She was placed on a non rebreather which did improve this up to low 90s. Cheyenne, RN, did contact Dr. Engel as well as the dialysis nurse. She received instructions from Dr. Engel to stop the peritoneal dialysis for tonight and that they may give up to 2 L normal saline bolus if necessary to improve her blood pressure. We did arrange for the patient to be moved to the ICU. After the patient's normal saline boluses were started her pressure did improve to 76/56 with a heart rate in the 80s. Her oxygen saturation on the non rebreather was 94%. The patient at this time was still talking and was awake. This was at 2235. The patient was moved to ICU and arrived there at approximately 2310 when I received a page from the ICU charge nurse notifying us that the patient's respirations were very decreased and that she was unresponsive and they could not obtain a blood pressure on her. Dr. Mejía and myself went to ICU bed 16 and assessed the patient. It did appear that she was not moving a lot of air, respirations were very decreased. Lung sounds were also very diminished. We did ultimately decide to intubate the patient. The patient's family was spoken to and they were in agreement with continuing with intubation. She was also placed on a Levophed drip at this time as well. Yina Carrasco with our respiratory therapy was at bedside and did prepare to perform the intubation. Dr. Mejía at bedside did administer 20 of etomidate as well as 100 mg of succinylcholine for intubation. The patient was successfully intubated at 2336. There was positive color change on the CO2 detector noted. A 7.5 endotracheal tube was placed and was secured 23 cm at the lip. Chest x-ray did confirm that endotracheal tube was in the correct place Also an NG tube was placed as well and we did confirm with the x-ray that this was in place also. This x-ray was read by Dr. Mejía. After intubation, patient's blood pressure was up to 88/60 with a MAP at 66, heart rate was 67, oxygen saturation was 97%. The patient did previously have pneumonia prior to admission and CT performed on admission did show that her pneumonia was improving, though we have placed the patient on broad spectrum antibiotics at this time, vancomycin and Zosyn. We have also ordered repeat blood cultures as well as urine culture. Previous blood cultures at this time did show no growth after 48 hours on the preliminary report. She currently has a white blood cell count of 18, platelet count of 209. Blood gases post intubation showed pH of 7.34, CO2 of 39, pO2 of 138, HCO3 of 21.5. Her chemistries do not appear to have changed much from previous readings. Her sodium was 131, potassium 4.4, chloride 94, carbon dioxide 19, BUN is 29, creatinine 2.4 with GFR of 20. Glucose was 394. Calcium 7.7. Phosphorus 5.2. CK was 103 though her troponin was slightly elevated at 0.119. We will do some repeats of this and trend this as well. Plasma lactate was 5.4. It is likely possible that the Cardizem in conjunction with the administration of the Ativan, Celexa, Klonopin and morphine within a close time period as well as peritoneal dialysis being performed at the same time could have decreased the patient's blood pressure and could have precipitated this episode though at this time the patient seems to be doing well. We will continue the Levophed drip. If her blood pressures do continue to decline , we can add epinephrine drip as well. We will likely have to place her on a propofol drip for sedation though this will likely decrease the blood pressure as well and that is why we have placed order for the epinephrine drip if needed. We have ordered for repeat labs in the morning and will await the results of her blood cultures and urine culture and continue to follow the patient very closely. Dictated by MONTY Pleitez for Missael Mejía MD Patient seen and evaluated by I and I agree with MELANIA Ryder' plans. I have ordered first 500 cc NS IV bolus and then was increased to 2 L after discussion with Nephrology. Patient failed to improved and was intubated to preserved airways. Started her on pressors. Sepsis picture. Started broad spectrum IV antibiotics and re sent for neri cultures. Discussed at length with family at bedside. Critically ill and unstable. Keep in ICU. Critical care time spent 29 min. SACHIN
[2016-02-21] MEDS: SODIUM CHLORIDE 0.9% INJ SCH (10:38)
[2016-02-21] MEDS: PROTONIX IV SCH (10:38)
--- NOTE | 2016-02-21 12:16 | Diag Imaging Result Document ---
PROCEDURE NAME: CHEST-PORTABLE - 02/20/2016 AP PORTABLE CHEST AT 2345 HOURS: FINDINGS: There are bilateral pleural effusions. There is an NG tube with its tip below the diaphragm and an endotracheal tube with the tip slightly below the thoracic inlet. There are bilateral pleural effusions. There are patchy alveolar opacities in the parahilar regions of both upper lobes. This has worsened since 02/20/2016. IMPRESSION: Pleural effusions. Pulmonary edema and/or bronchopneumonia.
[2016-02-21] MEDS: ZOSYN 2.25 GM/NS 50 ML IV SCH ×2 (13:20→21:50)
--- NOTE | 2016-02-21 13:46 | PROGRESS NOTE ---
DATE: 02/21/2016 SUBJECTIVE: This morning I saw Ms. Parry. Transferred from the [facility] to ICU last night because she developed hypotension and acute respiratory distress. Had to be intubated. Of note, yesterday around 5 p.m. I saw Ms. Parry myself. She was actually on the phone with her son. She also had her daughter and another family member in the room. I did explain to her that she does not need to be on a lot of sedatives for her anxiety disorder but she repeatedly requested for Ativan and morphine and she even wanted us to increase some of the sedatives doses. Last night my understanding is some of her medications were given to her and subsequently she started having bradycardia, became hypotensive, and developed acute respiratory distress and had to be brought down to the ICU, intubated. OBJECTIVE: This morning, her vitals are stable. Blood pressure is 116/80, pulse of 66, respiration is 15, temperature is 96.6 degrees. Patient is saturating 100% on mechanical ventilation. General: Ms. Parry is a 70-year-old female. She was in bed. Synchronizing very well with the ventilator. HEENT: Mucosa is pink and moist. Anicteric. Acyanotic. Neck: Supple. Chest: Air entry is bilaterally reduced. I did not appreciate any crepitations or rhonchi. Cardiovascular: Regular rate and rhythm. There is a 3/6 TR murmur. There is also a generator pocket on the left anterior chest wall. Abdomen: Soft. There is a peritoneal dialysis catheter in place. : There is a Polanco catheter in place as well. Extremities: About 1+ pedal edema. 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 Able to withdrawal against painful stimulation. Patient has a very good cough reflex. LABORATORY DATA: WBC is 18.24, hemoglobin is 13.8, platelet count is 209,000. ABG, pH 7.34, pCO2 is 34, PO2 is 138,. Chemistry: Sodium is 131, potassium is 4.1, chloride is 94 , bicarb is 19, BUN is 29, creatinine is 2.4; creatinine went up to 1.131. DIAGNOSTIC STUDIES: A chest x-ray done this morning shows some improvement in the right-sided infiltrate. Still some interstitial edema. ASSESSMENT: 1. Hypotension, bradycardia, and respiratory distress overnight. The patient went in to some code and had to be intubated and currently she is under mechanical ventilation. Will continue with the supportive care. Pulmonary medicine has been consulted. 2. Acute hypoxemic respiratory failure on presentation due to pulmonary edema. The patient was given a dose of Lasix and was aggressively managed with peritoneal dialysis. 3. Atrial fibrillation with rapid ventricular response. Cardiology saw the patient yesterday. Patient was on diltiazem drip. I understand that at the time that she became hypotensive she was on about 20 mg of diltiazem. This morning her rate is around 70, in sinus, and the pacemaker is triggering very frequently. 4. Diffuse esophageal spasms. Noted. 5. Severe anxiety with panic attacks. The patient was on Celexa and Klonopin. During the course of the hospitalization she has multiple times requested other medications and has been on Ativan and morphine as well nd I think this also contributed to her acute episode last night. 6. Recently diagnosed extra-axial mass in the brain, likely meningioma. Noted. 7. Endstage renal disease on peritoneal dialysis. This has been withheld for today pending nephrology re-evaluation. PLAN: We are going to continue with ventilator support. Patient is currently also on antibiotics just to make sure we are covering for a possible infectious etiology for the hypertension the acute process. Patient has some leukocytosis but I think this is more reactive. Blood cultures have been done. We are pending the report. So far urine culture is negative. critical time spent 45 minutes SACHIN
--- NOTE | 2016-02-21 13:58 | PROGRESS NOTE ---
DATE: 02/21/2016 SUBJECTIVE: Events from last evening noted. The patient is now intubated and sedated. OBJECTIVE: Vital signs: Heart rate is 60s to 70s. Blood pressure is 110s to 120s over 80s. General: On exam, this is a frail, elderly female who is intubated and sedated. HEENT: Benign. Neck: Supple. Chest: Bilateral breath sounds, which are currently clear. Cardiovascular: Reveals a regular rate and rhythm. Abdomen: Positive bowel sounds. Nontender, nondistended. Extremities: There is mild pitting edema within the ankles. Patient's extremities are somewhat cool but pulses are preserved. LABORATORY WORK: Currently white count 18, hemoglobin and hematocrit 12 and 39, platelet count is 209,000; pH 7.34, pCO2 39, PO2 138. Sodium 131, potassium 4.9, chloride 95, BUN 27, creatinine 2.5, calcium is 7.7. Chest x-ray from last night indicated worsening pleural effusion. IMPRESSION: 1. Respiratory failure. This is multifactorial. The patient has end-stage renal disease. She also has chronic systolic congestive heart failure. Fluid status is being managed through dialysis. I will continue her on her current dose of beta-estephania in the form of Coreg. I am concerned that patient's pleural effusions may be compromising pulmonary status. Once she is more stable it may not be unreasonable to perform noncontrasted CT to get a better feel for the size of these effusions and whether thoracentesis is indicated or not.
--- NOTE | 2016-02-21 15:45 | PROGRESS NOTE ---
DATE: 02/21/2016 SUBJECTIVE: Overnight she became unstable with hypotension, tachycardia, atrial fibrillation with rapid response. She developed respiratory failure and required intubation. She is currently sedated on Levophed and on the ventilator. She is down to 40% FiO2. OBJECTIVE: Vital Signs: Blood pressure 115/84, heart rate 70, respirations 25, afebrile. Intake and output: Intake 3.6 L. Output 3.1 L. General: No acute distress. Skin: Warm and dry. HEENT: Conjunctivae are pink. Neck: Neck veins are distended. Trachea is midline. Heart: Regular with a gallop. Lungs: Have equal breath sounds. No crackles. Few wheezes. Abdomen: Soft, nontender. Bowel sounds are diminished but present. Extremities: Have trace edema. No clubbing or cyanosis. LABORATORY DATA: Sodium 131, potassium 4.4, chloride 94, bicarbonate 19, BUN 29, creatinine 2.4. IMPRESSION: Cardiorespiratory collapse. Improved. I have discussed this directly with Dr. Avelar who does not feel that she was hypovolemic. As such, we will continue her peritoneal dialysis with a goal of negative fluid balance. Electrolytes are in target. Acid-base is somewhat improved. We will re-evaluate in the morning.
--- NOTE | 2016-02-21 18:32 | CONSULTATION ---
DATE OF CONSULTATION: 02/21/2016 Thank you very much for asking me to see this very unfortunate 70-year-old female, white. DIAGNOSIS: 1. Chronic renal insufficiency, on peritoneal dialysis. 2. Respiratory failure as a consequence of pulmonary edema. 3. Right-sided pleural effusion. 4. Chronic diabetes mellitus. 5. History of gastroesophageal reflux and anxiety. 6. Hyperlipidemia. 7. Hypothyroidism. RECOMMENDATIONS: She will be mechanically ventilated. She is on broad-spectrum antibiotics. I will give her L beta agonist, start some enteral nutrition, monitor for sepsis and follow closely along with you. Hopefully, with hypertonic peritoneal dialysis, we can remove some fluid if her blood pressure will tolerate it, and we will be able to wean the ventilator. I discussed with the family. HISTORY: This very unfortunate 70-year-old male white has a known history of chronic renal insufficiency. She is on peritoneal dialysis, has probably not been very compliant with this at home over the last couple weeks as she lives at home, she has become increasingly weak, but subsequent to this, she presented to the hospital on the . She was admitted to the floor and last evening developed respiratory distress, hypoxemia. Was intubated, brought to the ICU and I am consulted to assist in her care. She had some SVT, but did not number lose vital signs. REVIEW OF SYSTEMS: Except for the features mentioned above are negative for weight loss, night sweats, weakness or anorexia. No ENT symptoms of odynophagia, dysphagia, epistaxis, painful swallowing. No eye symptoms of blindness, blurring, diplopia, no other cardiac or pulmonary symptoms other than mentioned, no nausea, vomiting, constipation, diarrhea. No hematuria, polyuria, nocturia, dysuria. No joint or muscle pain, stiffness, swelling. No skin rashes, itching, bruising. No seizures, loss of consciousness, paralysis, except for the features mentioned above. All other symptoms on the review of systems are negative. PAST MEDICAL HISTORY: Positive for left ventricular dysfunction, ejection fraction 20%, ischemic heart disease, diabetes mellitus status post pacemaker, hyperlipidemia, chronic renal insufficiency, GE reflux, malnutrition, hypothyroidism as well as osteoporosis. SOCIALLY: She lives at home. She does have some family that stays with her in the evenings. She supposedly does her peritoneal dialysis at night. FAMILY HISTORY: Positive for ischemic heart disease as well as hypertension. PHYSICAL EXAMINATION: vital signs: This kind, elderly lady shows a blood pressure of 115/84, pulse 70 and regular. Respirations 24, temperature 97.8 degrees. HEENT: Exam reveals no thyromegaly or adenopathy. Pupils are equal and reactive. Extraocular muscles are intact. Neck: Supple. No bruits. No thyromegaly. No JVD. Chest: Reveals bilateral equal breath sounds with some prolongation of expiratory phase and forced expiratory wheezes. Cardiac: The chest reveals mechanically generated breath sounds with some crackles on the right side. The cardiac examination reveals a regular rhythm. There is a palpable left-sided pacemaker. Abdomen: Soft, nontender. No hepatosplenomegaly. There is a peritoneal dialysis catheter in place. Extremities: Reveal edema. Neurologically: She is sedated, but has reportedly moved all 4 since the mechanical ventilation was implemented. DIAGNOSTICS: The chest radiograph demonstrates a right-sided pleural effusion. Bilateral infiltrates consistent with edema. ET tube is in position. Left-sided pacemaker is present. The white count is 17,600 with a hemoglobin 13.1, hematocrit 39.2, platelets of 243,000. The ABG shows a 7.39, 3 to 4 pH with 39 CO2 and 138 O2. Sodium 134, potassium 4.4, chloride 94, CO2 19, BUN 29, creatinine 2.4, glucose 394.
[2016-02-21] MEDS: PLAVIX PO SCH (21:46)
[2016-02-21] MEDS: LIPITOR PO SCH (21:46)
[2016-02-21] MEDS: CELEXA PO SCH (21:46)
[2016-02-22] MEDS: DUONEB (A & A) INH SCH ×6 (02:41→23:09)
[2016-02-22] MEDS: CARDIZEM 100 MG/NS 100 ML IV SCH (04:48)
[2016-02-22 05:08] LABS: ALLEN TEST YES; BLOOD TYPE ARTERIAL; DRAW SITE R RADIAL; METHB 1.5 % (0.0-1.5); O2(CT) 23.6 mL/dL (15.0-23.0); PCO2(98.6) 34 mmHg (35-45); PO2(98.6) 120 mmHg (60-100); SAMPLE BLOOD; SAO2 98.8 % (95.0-100.0); SRATE 12 BPM; THB 17.5 g/dL (11.5-17.4); TVOL 400 mL; pH(98.6) 7.46 (7.35-7.45)
[2016-02-22 05:09] LABS: MODALITY VENTILATOR
[2016-02-22] MEDS: ZOSYN 2.25 GM/NS 50 ML IV SCH ×3 (05:26→21:27)
[2016-02-22] MEDS: DIPRIVAN 1% 100 ML IV SCH ×3 (05:28→21:47)
[2016-02-22 05:48] LABS: MANUAL DIFF NEEDED? NO
[2016-02-22 06:03] LABS: BASO% 0.1 % (0.0-0.8); EOS# 0.24 X1000 (0.0-0.7); EOS% 1.7 % (0.0-10.0); HEMATOCRIT 37.2 % (37.0-47.0); HEMOGLOBIN 12.5 g/dL (12.0-16.0); IMM GRAN# 0.03 X1000 (0.0-0.04); IMM GRAN% 0.2 % (0.0-0.5); LYMPH# 1.51 X1000 (1.2-3.4); MCH 29.7 PG (27-31); MCHC 33.6 g/dL (33-37); MCV 88.4 FL (81-99); MONO# 1.06 X1000 (0.11-0.59); MONO% 7.7 % (1.7-9.3); MPV 12.4 FL (7.4-10.4); NEUT% 79.3 % (42.2-75.2); PLT 233 X1000 (130-400); RBC 4.21 XMIL (4.2-5.4)
[2016-02-22] MEDS: HUMALOG SUBQ SCH ×4 (06:16→21:36)
[2016-02-22] MEDS: SYNTHROID IV SCH (06:16)
[2016-02-22 06:48] LABS: ALBUMIN 2.1 g/dL (3.5-5.0); CALCIUM 7.9 mg/dL (8.8-10.2); POTASSIUM 4.5 mmol/L (3.5-5.1); TOTAL BILIRUBIN 0.31 mg/dL (0.20-1.00)
[2016-02-22] MEDS: LEVOPHED 8 MG in D5 1/2 NS 250 ML IV SCH (07:37)
--- NOTE | 2016-02-22 07:42 | Diag Imaging Result Document ---
PROCEDURE NAME: CHEST-PORTABLE - 02/22/2016 AP PORTABLE CHEST AT 0500 HOURS: FINDINGS: The endotracheal tube tip is just below the thoracic inlet and there is an NG tube below the diaphragm. There are bilateral pleural Effusions. There is interstitial pulmonary edema and some suggestion of atelectasis or pneumonia, particularly of the left upper lobe. These findings were also present on 02/20/2016. IMPRESSION: Pleural effusions and pulmonary edema plus/minus pneumonia.
--- NOTE | 2016-02-22 07:45 | EKG Report ---
Test Performed on : 02/20/2016 12:01:46 PM Test Reason : afib Blood Pressure : / mmHG Vent. Rate : 124 BPM Atrial Rate : 072 BPM P-R Int : 000 ms QRS Dur : 094 ms QT Int : 330 ms P-R-T Axes : 000 -31 135 degrees QTc Int : 474 ms Atrial fibrillation. with rapid ventricular response. with premature ventricular or aberrantly conduc ronni complexes. Left axis deviation Septal infarct , age undetermined ST & T wave abnormality, consider lateral ischemia Abnormal ECG When compared with ECG of 19-FEB-2016 08:23, Atrial fibrillation. has replaced Sinus rhythm. Septal infarct is now present ST less depressed in Lateral leads T wave inversion less evident in Lateral leads Confirmed by Eduardo Kim MD ([id number]) on 02/23/2016 8:35:33 AM
--- NOTE | 2016-02-22 08:18 | PROGRESS NOTE ---
DATE: 02/22/2016 SUBJECTIVE: She remains sedated on the ventilator. OBJECTIVE: Vital Signs: Blood pressure 101/72, heart rate 83, respiration 18, afebrile. Remains on norepinephrine. Intake 1 L. Output 400 mL plus UF of 930 from PD overnight. Skin: Warm and dry. HEENT: Conjunctivae are pink. Neck: Neck veins are not visible. Heart: Irregular. Lungs: Have equal breath sounds. No crackles or wheezes. Abdomen: Soft, mildly distended. Bowel sounds are present. Extremities: Have no edema, clubbing, or cyanosis. LABORATORY DATA: Sodium 135, potassium 4.5, chloride 98, bicarbonate 21, BUN 31, creatinine 2.7, albumin 2.1. IMPRESSION: 1. Respiratory failure. Multifactorial. A CT of the chest is planned today to reassess her effusions and her pneumonia. Her volume status has improved by clinical exam. Continue same treatment. 2. Electrolytes in target. 3. Acid-base in target. 4. Anemia in target. 5. Hypotension. Improved but she still on norepinephrine.
[2016-02-22] MEDS: COREG PO SCH ×2 (09:42→21:28)
[2016-02-22] MEDS: LEVEMIR SUBQ SCH ×2 (09:42→21:47)
[2016-02-22] MEDS: HEPARIN SUBQ SCH ×2 (09:42→21:27)
[2016-02-22] MEDS: MIRALAX PO SCH (09:43)
[2016-02-22] MEDS: PROTONIX IV SCH (09:51)
[2016-02-22] MEDS: SODIUM CHLORIDE 0.9% INJ SCH (09:51)
--- NOTE | 2016-02-22 10:08 | PROGRESS NOTE ---
DATE: 02/22/2016 SUBJECTIVE: Patient remains intubated and sedated. OBJECTIVE: Heart rate is in the 80s, blood pressure is 100s/70s.General: On exam, this is a well- developed female who is comfortable. HEENT: Benign. Neck: Supple. Chest: Clear. Cardiovascular: Reveals a regular rate and rhythm. Abdomen: Positive bowel sounds. Nontender, nondistended. Extremities: There is no edema. HEENT: Nose is negative, 1656 mL today. IMPRESSION: 1. Congestive heart failure. Patient is currently being diuresed through hemodialysis. We have initiated carvedilol which patient is tolerating, would make no other adjustment at this time. 2. Again, patient has pleural effusions which may be compromising pulmonary status. Hopefully these will resolve through aggressive diuresis.
[2016-02-22] MEDS ORDERED: ALBUMIN 25% IV SCH (10:15)
[2016-02-22] MEDS: ALBUMIN 25% IV SCH ×2 (12:10→20:00)
--- NOTE | 2016-02-22 16:31 | PROGRESS NOTE ---
DATE: 02/22/2016 SUBJECTIVE: Ms. Parry continues to be intubated. She has no changes overnight per nursing staff. OBJECTIVE: Vital Signs: Stable 119/72, pulse of 91 respirations 19, and temperature 98.7 degrees. Patient is saturating 100% on mechanical ventilation with an FiO2% of 40. General: Ms. Parry is a 70-year-old female. She was in bed in no distress. The patient seems to be synchronizing very well on the ventilator. Mucus is pink and moist. Anicteric. Acyanotic. Neck: Supple. Chest: Air entry is bilaterally reduced. There is a few bibasilar crepitations. Cardiovascular: Regular rate and is about 3/6 TR murmur. There is also a generator pocket in the left anterior chest wall. Abdomen: Soft. Mildly distended. There is a peritoneal dialysis catheter in place. There is also a Polanco catheter in place. Extremities: One to 2+ pedal edema bilateral. ORACLE SPECIALIST: Patient is intubated and sedated on propofol. She is able to withdrawal from painful stimuli. LABORATORY DATA: WBC is 13.75, hemoglobin 12.5 and platelet count of 233,000. Sodium is 135, potassium is 4.5, chloride 98, bicarb 21, creatinine is 2.7. AST is 121. ALT is 151. Thyroid peroxidase antibodies is more than 600 consistent with hypothyroidism. ASSESSMENT: 1. Hypotension, bradycardia and respiratory distress. Patient was in CRC and developed the symptoms, and last night before and had to undergo mechanical ventilation. I think this was a combination of multiple things. A) Due to atrial fibrillation/RVR causing severe acute heart failure. B) The patient was on a lot of sedatives and this could potentially also have dropped her blood pressure. C) We know now patient had severe hypothyroidism which could also be precipitated by whatever other metabolic stuff that were going on. In any case, the patient is on ventilation and is being seen by pulmonary medicine. 2. Acute hypoxemic respiratory failure on presentation due to pulmonary edema. The patient was being aggressively managed with peritoneal dialysis. A CT scan done today shows bilateral pleural effusions with some bibasilar atelectasis. Patient is being evaluated for possibility of hemodialysis to help with some of this fluid management. 3. Atrial fibrillation with rapid ventricular response. The patient was started on diltiazem drip and blood pressure tumble down, pulse also went remarkably low. Currently, patient is in sinus and is on a beta estephania. 4. Diffuse esophageal spasms noted. 5. Endstage renal disease on peritoneal dialysis. 6. Congestive heart failure with ejection fraction of 25% to 30%. 7. Recently diagnosed extra-axial mass in the brain likely meningioma. We have not been able to do an MRI because of the pacemaker. 8. Severe anxiety with panic attacks. The patient was on multiple sedatives and that could also potentially have precipitated her critical illness leading to intubation. 9. Hypothyroidism. Patient has elevated TSH and thyroid peroxidase is remarkably positive, however T4 is normal. This is consistent with subclinical hypothyroidism. In the context of antibiotic positive, the patient needs to be treated. She has already been started on levothyroxine by Pulmonary Medicine. 10. Acute hepatocellular injury. I think this is likely due to ischemic liver injury during the hypotensive period. We would keep an eye on this and make sure we avoid any hepatotoxic drugs. I met this afternoon with one of the daughters and 2 other family members who were with her. I did explain to her the clinical picture for Ms. Parry, and the fact that there is the thought process of possible hemodialysis. I did also mention to her that Ms. Parry probably be on the vent for a little while as we try to find a better way to get some of the fluid out. TIME SPENT: We spent about 45 minutes of critical care time. SACHIN
[2016-02-22] MEDS: MORPHINE IV PRN (19:45)
[2016-02-22] MEDS: LIPITOR PO SCH (21:27)
[2016-02-22] MEDS: PLAVIX PO SCH (21:28)
[2016-02-22] MEDS: CELEXA PO SCH (21:28)
[2016-02-23] MEDS: DUONEB (A & A) INH SCH ×6 (03:32→22:58)
[2016-02-23 04:59] LABS: ALLEN TEST YES; BE 0.8 mmoll (-3.0-3.0); BLOOD TYPE ARTERIAL; DRAW SITE R RADIAL; METHB 1.8 % (0.0-1.5); O2(CT) 14.8 mL/dL (15.0-23.0); PCO2(98.6) 39 mmHg (35-45); PO2(98.6) 136 mmHg (60-100); SAMPLE BLOOD; SAO2 99.3 % (95.0-100.0); SRATE 8 BPM; THB 10.8 g/dL (11.5-17.4); TVOL 500 mL; pH(98.6) 7.42 (7.35-7.45)
[2016-02-23 05:00] LABS: MODALITY VENTILATOR
[2016-02-23] MEDS: ZOSYN 2.25 GM/NS 50 ML IV SCH ×3 (05:00→20:58)
[2016-02-23] MEDS: CARDIZEM 100 MG/NS 100 ML IV SCH ×2 (05:12→20:58)
[2016-02-23 05:27] LABS: MANUAL DIFF NEEDED? NO
[2016-02-23 05:31] LABS: BASO% 0.2 % (0.0-0.8); EOS# 0.25 X1000 (0.0-0.7); EOS% 2.3 % (0.0-10.0); HEMOGLOBIN 11.2 g/dL (12.0-16.0); IMM GRAN# 0.02 X1000 (0.0-0.04); IMM GRAN% 0.2 % (0.0-0.5); LYMPH# 2.02 X1000 (1.2-3.4); LYMPH% 18.2 % (20.5-51.1); MCH 29.6 PG (27-31); MCHC 32.9 g/dL (33-37); MCV 89.7 FL (81-99); MONO# 0.91 X1000 (0.11-0.59); MONO% 8.2 % (1.7-9.3); MPV 12.7 FL (7.4-10.4); NEUT% 70.9 % (42.2-75.2); PLT 177 X1000 (130-400); RBC 3.79 XMIL (4.2-5.4)
[2016-02-23 05:46] LABS: MAGNESIUM 1.8 mg/dL (1.5-2.7)
[2016-02-23 05:51] LABS: ALBUMIN 2.8 g/dL (3.5-5.0); CALCIUM 8.3 mg/dL (8.8-10.2); POTASSIUM 3.8 mmol/L (3.5-5.1); TOTAL BILIRUBIN 0.38 mg/dL (0.20-1.00); TOTAL PROTEIN 5.3 g/dL (6.3-8.3)
[2016-02-23] MEDS: SYNTHROID IV SCH (06:45)
[2016-02-23] MEDS: HUMALOG SUBQ SCH ×4 (06:48→21:03)
--- NOTE | 2016-02-23 07:30 | Diag Imaging Result Document ---
PROCEDURE NAME: CHEST-PORTABLE - 02/23/2016 PORTABLE CHEST X-RAY, 02/23/2016: COMPARISON: 02/22/2016. FINDINGS: Stable support lines and tubes. Stable pacemaker. Stable cardiomegaly and pulmonary vascular congestion with central pulmonary edema. Stable small to moderate bilateral pleural effusions. IMPRESSION: No change from prior.
--- NOTE | 2016-02-23 07:36 | Diag Imaging Result Document ---
PROCEDURE NAME: CT THORAX W/O CONTRAST - 02/22/2016 CT OF THE CHEST WITHOUT CONTRAST: FINDINGS: There are large bilateral pleural effusions. Considerable atelectasis is present in both lower lobes. There is somewhat worsened atelectasis in the left upper lobe compared to the previous study of 02/18/2016. The pleural effusions and lower lobe atelectasis have worsened. IMPRESSION: Worsened bilateral pleural effusions and atelectasis as described. The possibility of pneumonia, particularly in the left upper lobe cannot be excluded.
[2016-02-23] MEDS: VANCOMYCIN 1 GM/NS 250 ML IV SCH (07:43)
[2016-02-23] MEDS: LEVOPHED 8 MG in D5 1/2 NS 250 ML IV SCH (08:08)
--- NOTE | 2016-02-23 09:27 | PROGRESS NOTE ---
DATE: 02/23/2016 SUBJECTIVE: The patient remains intubated and sedated. OBJECTIVE: Vital Signs: Heart rate is 80s. Blood pressure is currently 115/82, but patient is off pressor therapy. General: On exam, this is a well-developed female, who is sedated. Neck: Supple. Chest: Bilateral breath sounds, which are clear. Cardiovascular: Reveals an irregular rate and rhythm. There is a faint systolic ejection murmur noted. Abdomen: Positive bowel sounds. Nontender, nondistended. Extremities: There is no edema. LABORATORY WORK: I have reviewed laboratory work today. White count 11, hemoglobin and hematocrit 11 and 34, platelet count is 177. Sodium 132, potassium 2.8, chloride 93, BUN 34, creatinine 2.7. IMPRESSION: 1. Congestive heart failure. This is chronic systolic congestive heart failure. Again, volume is being managed by renal medicine. We have transitioned the patient to Coreg, which she has been tolerating. We will continue this and titrate as patient improves hemodynamically. 2. End-stage renal disease. The patient is being transitioned from peritoneal to hemodialysis today. There has been some issue with full diuresis on peritoneal dialysis.
[2016-02-23] MEDS: HEPARIN SUBQ SCH ×2 (10:14→20:58)
[2016-02-23] MEDS: COREG PO SCH ×2 (10:17→20:57)
[2016-02-23] MEDS: MIRALAX PO SCH (10:17)
[2016-02-23] MEDS: SODIUM CHLORIDE 0.9% INJ SCH (10:20)
[2016-02-23] MEDS: LEVEMIR SUBQ SCH ×2 (10:20→21:03)
[2016-02-23] MEDS: PROTONIX IV SCH (10:21)
[2016-02-23] MEDS: SOLU-CORTEF IV SCH ×2 (11:34→23:00)
[2016-02-23] MEDS: DIPRIVAN 1% 100 ML IV SCH (13:12)
--- NOTE | 2016-02-23 14:46 | PROGRESS NOTE ---
DATE: 02/23/2016 SUBJECTIVE: Today Ms. Parry continued to be stable. No acute changes overnight. OBJECTIVE: Vital Signs: Blood pressure is 92/64, pulse of 69, respiration is 17, temperature 97.2 degrees. General Exam: Ms. Parry is a 70-year-old female. She is in bed, intubated and synchronizing well with the ventilator. HEENT: Mucosa is pink and moist. Anicteric. Acyanotic. Neck: Supple. Chest: Air entry is bilaterally reduced. There are crepitations. Cardiovascular: Regular rate and rhythm. There is a 3/6 TR murmur. Occasional there are some extrasystolic beats. Chest: There is a generator pocket in the left anterior chest wall. Abdomen: Soft, nondistended. There is a peritoneal dialysis catheter in place. There is also a Polanco catheter in place. Extremities: About 1+ pedal edema. FLORAL DESIGNER: Patient is intubated and sedated. Able to withdraw from painful stimuli. Ins and Outs: Urine output is 320. Dialysis output is 1656. DIAGNOSTIC STUDIES: A chest x-ray this morning continued to show cardiomegaly, pulmonary vascular congestion, and central pulmonary edema. Stable small to moderate bilateral pleural effusions. ASSESSMENT: 1. Hypotension, bradycardia, and respiratory distress on the floor. This led to patient on intubation, currently on ventilator support, and we are following further recommendations from Pulmonary Medicine. 2. Acute hypoxemic respiratory failure on presentation due to pulmonary edema. Patient continues to have significant bilateral pleural effusions and pulmonary edema, and I think there is a plan to do hemodialysis. 3. Atrial fibrillation with rapid ventricular response. This was a new onset on the floor about 3 days ago. We sent her to the [facility]. Blood pressure went down with the Cardizem drip. The patient is currently off the drip, seems to be doing remarkably okay. 4. Diffuse esophageal spasms noted. 5. Endstage renal disease on peritoneal dialysis. I think the plan is to have a Vas-Cath for hemodialysis. 6. Congestive heart failure with ejection fraction of 35%-30%. I think could probably have some exacerbation of this from the atrial fibrillation rapid ventricular rate which threw the patient into hypotension and bradycardia. 7. Recently diagnosed extra-axial mass in the brain, likely meningioma. We have not been able to do an MRI because of patient having a pacemaker. 8. Severe anxiety and panic attacks. On the floor, patient was requesting a lot of sedatives and pain medications. 9. 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 Patient is currently on levothyroxine. 10. Acute hepatocellular injury, likely from ischemic event when patient became hypotensive. The liver enzymes are showing improvement. PLAN: Patient seems to be stable. We will continue with her current medications including nebulizations, insulin, levothyroxine, antibiotics. We will follow up with further recommendations from Nephrology with regards to if they are going to do any hemodialysis, and also follow up with Pulmonary Medicine to know when patient can successfully be extubated.
--- NOTE | 2016-02-23 15:25 | PROGRESS NOTE ---
DATE: 02/23/2016 SUBJECTIVE: Remains on the ventilator. OBJECTIVE: Vital Signs: Blood pressure 124/56, heart rate 71, respirations 13, afebrile. Intake and output: Intake 2 L. Output 2 L. General: Sedated. Does arouse and moves spontaneously. HEENT: Conjunctivae are pink. Pupils are equal. Neck: Neck veins are not distended. Trachea is midline. Heart: Regular without gallops. Lungs: Have equal breath sounds. No crackles or wheezes. Abdomen: Soft, nontender. Bowel sounds are present. Extremities: Have minimal edema. No clubbing or cyanosis. LABORATORY DATA: Sodium 132, potassium 3.8, chloride 93, bicarbonate 22, BUN 34, creatinine 2.7, albumin 2.8. Hemoglobin 11.2. IMPRESSION: End-stage kidney disease. Given her protracted illness ongoing use of peritoneal dialysis is likely to be counterproductive. She will have a tunneled catheter placed by Dr. Rodriguez tomorrow and we will transition to hemodialysis. Hold dialysis tonight. Electrolytes/acid- base/anemia are all in target. Blood pressure is low but stable.
[2016-02-23] MEDS: MORPHINE IV PRN (19:45)
[2016-02-23] MEDS: CELEXA PO SCH (20:57)
[2016-02-23] MEDS: LIPITOR PO SCH (20:57)
[2016-02-23] MEDS: PLAVIX PO SCH (20:58)
[2016-02-24] MEDS: DUONEB (A & A) INH SCH ×6 (03:42→23:27)
[2016-02-24] MEDS: HUMALOG SUBQ SCH ×4 (04:20→22:48)
[2016-02-24 04:33] LABS: ALLEN TEST YES; BE 1.1 mmoll (-3.0-3.0); BLOOD TYPE ARTERIAL; DRAW SITE R RADIAL; METHB 1.4 % (0.0-1.5); O2(CT) 15.8 mL/dL (15.0-23.0); PCO2(98.6) 37 mmHg (35-45); PO2(98.6) 184 mmHg (60-100); SAMPLE BLOOD; SAO2 99.7 % (95.0-100.0); SRATE 8 BPM; THB 11.3 g/dL (11.5-17.4); TVOL 500 mL; pH(98.6) 7.44 (7.35-7.45)
[2016-02-24 04:43] LABS: MODALITY VENTILATOR
[2016-02-24 05:12] LABS: HEMATOCRIT 34.7 % (37.0-47.0); HEMOGLOBIN 11.3 g/dL (12.0-16.0); MCH 29.4 PG (27-31); MCHC 32.6 g/dL (33-37); MCV 90.4 FL (81-99); MPV 12.8 FL (7.4-10.4); RBC 3.84 XMIL (4.2-5.4)
[2016-02-24] MEDS: ZOSYN 2.25 GM/NS 50 ML IV SCH ×3 (05:22→20:40)
[2016-02-24 06:12] LABS: ALBUMIN 2.5 g/dL (3.5-5.0); CALCIUM 8.6 mg/dL (8.8-10.2); POTASSIUM 4.2 mmol/L (3.5-5.1); TOTAL BILIRUBIN 0.41 mg/dL (0.20-1.00); TOTAL PROTEIN 5.3 g/dL (6.3-8.3)
[2016-02-24] MEDS: SYNTHROID IV SCH (06:13)
[2016-02-24] MEDS ORDERED: ALBUMIN 25% IV PRN (07:15)
[2016-02-24] MEDS ORDERED: TIGHT: 0.2 ML/HR MISC PRN (07:15)
[2016-02-24] MEDS ORDERED: NS 2,000 ML MISC PRN (07:15)
[2016-02-24] MEDS ORDERED: HEPARIN IV PRN (07:15)
--- NOTE | 2016-02-24 07:44 | Diag Imaging Result Document ---
PROCEDURE NAME: CHEST-PORTABLE - 02/24/2016 SINGLE FRONTAL RADIOGRAPH OF THE CHEST: COMPARISON: 02/23/2016. FINDINGS: ET tube is in stable position. NG tube projects below the diaphragm and out of the field of view. Central edema is unchanged. No new consolidations are identified. There is stable cardiomegaly. Bilateral small to moderate effusions, largest on the right, are essentially stable. IMPRESSION: Stable chest.
[2016-02-24] MEDS ORDERED: XYLOCAINE 1%/EPI 1:100,000 ONE (08:09)
[2016-02-24] MEDS ORDERED: NS 250 ML ONE (08:09)
[2016-02-24] MEDS ORDERED: HEPARIN ONE ×3 (08:09→11:59)
--- NOTE | 2016-02-24 08:53 | PROGRESS NOTE ---
DATE: 02/24/2016 SUBJECTIVE: Ms. Parry is sedated on the ventilator. OBJECTIVE: Vital Signs: Blood pressure 116/81, heart rate 72, respirations 22, afebrile. Intake 1.6 L; output 1.1 L. General: On physical exam, no acute distress. Skin: Warm and dry. Neck: Neck veins are not distended. Trachea is midline. Heart: Regular with murmur. Lungs: Have equal breath sounds. No crackles. Abdomen: Soft and nontender. Bowel sounds are present. Extremities: Have trace edema. No clubbing or cyanosis. LABORATORY DATA: Sodium 135, potassium 4.2, chloride 96, bicarbonate 22, BUN 44, creatinine 3.1, hemoglobin 11.3. IMPRESSION: 1. End-stage kidney disease: She will have a tunneled dialysis catheter placed today, and we will initiate hemodialysis. Goal of 2 L ultrafiltration. 2. Electrolytes are acceptable. 3. Acid-base in target. 4. Respiratory failure. Hopefully she will be able to be extubated after dialysis today.
[2016-02-24] MEDS: SODIUM CHLORIDE 0.9% INJ SCH (09:40)
[2016-02-24] MEDS: DIPRIVAN 1% 100 ML IV SCH ×3 (09:41→20:41)
[2016-02-24] MEDS: PROTONIX IV SCH (09:41)
[2016-02-24] MEDS: HEPARIN SUBQ SCH ×2 (09:41→20:37)
[2016-02-24] MEDS: LEVEMIR SUBQ SCH ×2 (09:42→22:49)
[2016-02-24] MEDS: COREG PO SCH ×2 (09:42→20:40)
[2016-02-24] MEDS: MIRALAX PO SCH (09:42)
--- NOTE | 2016-02-24 09:48 | OPERATIVE NOTE ---
PROCEDURE DATE: 02/24/2016 DATE OF PROCEDURE: 02/24/2016. PROCEDURE PERFORMED: Right-sided tunnel dialysis catheter placement with ultrasound and fluoroscopic guidance. SURGEON: Bird Rodriguez MD. SCHEDULING REPRESENTATIVE: Fabiola GALLO. PREOPERATIVE DIAGNOSES: 1. Chronic kidney disease, stage V. 2. Respiratory failure. 3. Dysfunctional peritoneal dialysis. POSTOPERATIVE DIAGNOSES: 1. Chronic kidney disease, stage V. 2. Respiratory failure. 3. Dysfunctional peritoneal dialysis. DESCRIPTION OF PROCEDURE: The patient was brought to the operating room on a ventilator. The right side of the neck and upper anterior chest were prepped and draped in a sterile fashion. We chose a 24 cm precurved catheter after measuring the level of the right atrium under fluoroscopic guidance. We anesthetized the skin in the neck. We did an ultrasound of the internal jugular vein that was found to be compressible. We anesthetized the skin, made a stab incision, and accessed the internal jugular vein without difficulty. We passed the guidewire into the superior vena cava under fluoroscopic guidance. We then anesthetized the skin below the clavicle, and anesthetized the soft tissue tunnel between the 2 incisions. We then tunneled a 24 cm precurved catheter from the subclavian incision to the neck incision. We passed the sequential dilators into the dilator introducer sheath over the guidewire. We removed the dilator and guidewire and introduced the split catheter through the sheath into the superior vena cava under fluoroscopic guidance into the right atrium. We were able to aspirate blood from each and injected Hep-Lock; we then put stronger heparin at 5000 per mL. We put 1.7 mL in one lumen and 1.8 mL in the other lumen. We secured the flange to the skin with nylon. We closed the skin of the neck incision with a 4-0 Polysorb subcuticular stitch. We placed a 4-0 Polysorb simple stitch at the exit site as well. Telfa and sterile OpSite's were applied. She tolerated it well and was sent to the recovery room in satisfactory condition.
[2016-02-24 10:40] LABS: HEPATITIS PROFILE ACUTE SEE COMMENTS (())
[2016-02-24] MEDS: SOLU-CORTEF IV SCH ×2 (10:55→22:46)
[2016-02-24] MEDS ORDERED: PIGGYBACK SET 7393 ONE (10:57)
[2016-02-24] MEDS ORDERED: 1/2 NS 500 ML ONE (10:57)
[2016-02-24] MEDS: D50W SYRINGE IV PRN (11:18)
[2016-02-24] MEDS ORDERED: NS 2,000 ML ONE (11:59)
--- NOTE | 2016-02-24 12:45 | PROGRESS NOTE ---
DATE: 02/24/2016 Today Ms. Parry's condition continues to be stable. She is on the ventilator. OBJECTIVE: Vital signs: Blood pressure is 108/70, pulse of 70, respirations 20, temp 96.8 degrees. General Exam: Ms. Parry is a 70-year-old female. She is in bed, intubated and sedated. Mucosa is pink and moist. Anicteric. Acyanotic. Neck: Supple. Chest: Air entry is bilaterally reduced. There are crepitations. Cardiovascular: Regular rate, occasional extrasystolic beats. There is a 3/6 TR murmur. There is also a generator pocket on the left anterior chest wall. There is recently inserted a tunnel cath on the right chest wall. Abdomen: Soft, nontender. No hepatosplenomegaly. There is peritoneal dialysis catheter in place. The Polanco catheter is also in place. Extremities: No pedal edema. 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 She is able to withdrawal slightly to painful stimulation. LABORATORY DATA: WBC is 9.96, hemoglobin is 11.3, platelet count is 171,000. Chemistry: Sodium is 135, potassium 4.2, chloride is 96, bicarb is 22. Creatinine is 3.1, that has worsened. ASSESSMENT: 1. Hypotension and bradycardia and respiratory distress on the floor. Patient is currently intubated. Continues to be followed up by Pulmonary Medicine. 2. Acute hypoxemic respiratory failure on presentation due to pulmonary edema. This seems to have worsened even on peritoneal dialysis. So the idea now is to get her hemodialysis. This has already been set up. Vas-Cath has been placed and patient is getting ready for this. 3. Atrial fibrillation with rapid ventricular response. Stable. 4. Congestive heart failure with ejection fraction of 30-35%. This could have been worsened as well by at the onset of the atrial fibrillation. 5. Recently diagnosed extra-axial mass in the brain likely meningioma. 6. Severe anxiety and panic attacks. 7. 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 8. Acute hepatocellular from ischemic event when patient became hypotensive. Liver enzymes improving. GENERAL PLAN: Today, we are going to continue with the current plan. Will continue with the antibiotics. The patient is getting hemodialysis today to help with ultrafiltration as well. We appreciate the input from Nephrology, Cardiology and Pulmonary Medicine in the care of Ms. Parry.
[2016-02-24] MEDS ORDERED: ALBUMIN 25% ONE (13:11)
[2016-02-24] MEDS: CARDIZEM 100 MG/NS 100 ML IV SCH (17:46)
[2016-02-24] MEDS: MORPHINE IV PRN (20:00)
[2016-02-24] MEDS: LIPITOR PO SCH (20:40)
[2016-02-24] MEDS: CELEXA PO SCH (20:41)
[2016-02-24] MEDS: PLAVIX PO SCH (20:41)
[2016-02-25] MEDS: DUONEB (A & A) INH SCH ×6 (03:46→22:42)
[2016-02-25] MEDS: HUMALOG SUBQ SCH ×4 (04:20→20:20)
[2016-02-25] MEDS: ZOSYN 2.25 GM/NS 50 ML IV SCH ×3 (04:33→20:41)
[2016-02-25 05:03] LABS: ALLEN TEST YES; BE 3.9 mmoll (-3.0-3.0); BLOOD TYPE ARTERIAL; DRAW SITE R RADIAL; METHB 1.9 % (0.0-1.5); O2(CT) 14.6 mL/dL (15.0-23.0); PCO2(98.6) 37 mmHg (35-45); PO2(98.6) 141 mmHg (60-100); SAMPLE BLOOD; SAO2 100.4 % (95.0-100.0); SRATE 8 BPM; THB 10.6 g/dL (11.5-17.4); TVOL 500 mL; pH(98.6) 7.48 (7.35-7.45)
[2016-02-25 05:04] LABS: MODALITY VENTILATOR
[2016-02-25 05:23] LABS: HEMATOCRIT 34.8 % (37.0-47.0); HEMOGLOBIN 11.5 g/dL (12.0-16.0); MCH 30.1 PG (27-31); MCV 91.1 FL (81-99); MPV 13.2 FL (7.4-10.4); RBC 3.82 XMIL (4.2-5.4)
[2016-02-25 05:38] LABS: CALCIUM 8.4 mg/dL (8.8-10.2); POTASSIUM 3.6 mmol/L (3.5-5.1); TOTAL BILIRUBIN 0.4 mg/dL (0.20-1.00); TOTAL PROTEIN 5.7 g/dL (6.3-8.3)
[2016-02-25] MEDS: SYNTHROID IV SCH (06:38)
--- NOTE | 2016-02-25 06:42 | PROGRESS NOTE ---
DATE: 02/25/2016 SUBJECTIVE: She is sedated on the ventilator. OBJECTIVE: Vital Signs: Blood pressure 99/74, heart rate 72, respirations 20, afebrile. Intake 1.4 L. Output 3.6 L. Physical Examination: General: No acute distress. Skin: Warm and dry. HEENT: Conjunctivae are pink. Neck: Neck veins are not visible. Heart: Regular. Lungs: Have equal breath sounds. No crackles or wheezes. Abdomen: Soft and nontender. Bowel sounds are present. Extremities: Have no edema, clubbing, or cyanosis. Laboratory Data: Sodium 139, potassium 3.6, chloride 99, bicarbonate 24, BUN 30, creatinine 2.2. Hemoglobin 11.5. IMPRESSION: 1. End-stage kidney disease. She had hemodialysis yesterday. Volume status looks excellent on exam today so I will not plan to repeat treatment today. 2. Respiratory failure. Managed by pulmonary. 3. Electrolytes/acid base/anemia. All within target. 4. Nutrition. She is receiving tube feeds.
--- NOTE | 2016-02-25 07:33 | Diag Imaging Result Document ---
PROCEDURE NAME: CHEST-PORTABLE - 02/25/2016 PORTABLE CHEST X-RAY, 02/25/2016: COMPARISON: 02/24/2016. FINDINGS: There is a new right-sided dialysis catheter with the distal tip at the cavoatrial junction. Other support tubes are stable. Stable cardiomegaly and pulmonary edema. Stable small to moderate pleural effusions. IMPRESSION: New dialysis catheter in good position. Otherwise, no change from prior.
[2016-02-25] MEDS: MIRALAX PO SCH (08:34)
[2016-02-25] MEDS: COREG PO SCH ×2 (08:34→23:04)
[2016-02-25] MEDS: HEPARIN SUBQ SCH ×2 (08:34→20:41)
[2016-02-25] MEDS: LEVEMIR SUBQ SCH ×2 (08:35→21:00)
[2016-02-25] MEDS: VANCOMYCIN 1 GM/NS 250 ML IV SCH (08:39)
[2016-02-25 10:41] LABS: ALLEN TEST YES; BE 1.5 mmoll (-3.0-3.0); BLOOD TYPE ARTERIAL; DRAW SITE R RADIAL; METHB 1.4 % (0.0-1.5); O2(CT) 16.2 mL/dL (15.0-23.0); PCO2(98.6) 39 mmHg (35-45); PO2(98.6) 131 mmHg (60-100); SAMPLE BLOOD; SAO2 99.8 % (95.0-100.0); THB 11.8 g/dL (11.5-17.4); pH(98.6) 7.43 (7.35-7.45)
[2016-02-25 10:42] LABS: MODALITY VENTILATOR
[2016-02-25] MEDS: SOLU-CORTEF IV SCH ×2 (11:00→22:55)
[2016-02-25] MEDS: SODIUM CHLORIDE 0.9% INJ SCH (11:34)
[2016-02-25] MEDS: PROTONIX IV SCH (11:34)
--- NOTE | 2016-02-25 12:39 | PROGRESS NOTE ---
DATE: 02/25/2016 SUBJECTIVE: Today Ms. Parry referred to be doing a whole lot better. She was actually extubated a couple hours ago. She is tolerating a non-rebreather very well and she is saturating pretty great. OBJECTIVE: Vital signs: Blood pressure is 102/77, pulse of 87, respiration is 28, temperature is 97.7 degrees. Patient is saturating 99% on 40% mask. General: Ms. Parry is a 70-year-old female. She is in bed. She did not seem to be in any remarkable distress. HEENT: Mucosa is pink and moist. Anicteric. Acyanotic. Neck: Supple. Chest: Air entry is bilaterally reduced. There are still a few bibasilar crepitations. Cardiovascular: Regular rate and rhythm. A few extrasystolic beats. There is a 3/6 TR murmur. There is a generator pocket on the left anterior chest wall. There is a recently inserted tunneled cath on the right chest wall. Abdomen: Soft. No hepatosplenomegaly. There is a dialysis catheter in place. Extremities: No pedal edema. 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 She is oriented to person. She is able to recognize the son and the [id number] who are in the room at the time of the encounter. LABORATORY DATA: WBC is 12.50, hemoglobin is 11.5, platelet count of 176,000. Sodium is 139, potassium is 3.6, chloride 99, bicarb is 24, creatinine is down to 2.2. I's and O's: The patient had 295 urine output but 3300 dialysis yesterday. ASSESSMENT: 1. Acute hypoxemic respiratory failure. Patient presented with pulmonary edema. She was being managed with peritoneal dialysis and Lasix. However, she developed more pulmonary edema on the floor and had to be intubated 02/21/2016 until today. Patient has been successfully extubated and seems to be doing remarkably fine. 2. Pulmonary edema. Patient had hemodialysis and I think that probably pulled most of this. X- ray this morning still continues to have some pulmonary edema with bilateral pleural effusions but I think it is remarkably improved than days before. 3. Atrial fibrillation with rapid ventricular response. Currently patient is rate controlled. 4. Congestive heart failure. Ejection fraction of 30 to 35%. I think there was an exacerbation of this due to the new onset of atrial fibrillation. 5. Recently diagnosed extra-axial mass in the brain, likely meningioma. 6. Severe anxiety and panic attacks. 7. 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 8. Acute hepatocellular injury, likely from hypotension (ischemic). It has improved. PLAN: The patient has been recently extubated. We are going to observe her in the ICU for a few more hours. If patient is doing fine we may start her on some clear liquids and advance her diet as tolerated for a renal diet.
--- NOTE | 2016-02-25 13:26 | PROGRESS NOTE ---
DATE: 02/25/2016 SUBJECTIVE: Ms. Parry is somewhat confused. She is currently on face mask. Family is at bedside. PHYSICAL EXAMINATION: Vital signs: She is afebrile. Her heart rates are in the 60s to 80s. Systolic blood pressures have been in the 80s to low 100s. General: No acute distress. Cardiovascular: She sounds to be in a regular rate and rhythm with no murmurs. No lower extremity edema. Chest: Exam is clear bilaterally. She has no increased work of breathing. Abdomen: Soft, nontender, nondistended. No obvious organomegaly. Skin Exam: Warm and dry throughout. PERTINENT DATA: White count 12.5, hematocrit 34.8, platelet count 176,000. Sodium is 139, potassium 3.6, BUN 30, creatinine 2.2; yesterday was 44 and 3.1 respectively. ASSESSMENT: 1. Systolic heart failure. 2. Acute kidney injury. PLAN: Patient had hemodialysis yesterday. BUN and creatinine appear improved and she seems to be doing better from a volume standpoint. Her O2 requirement is down. We will continue to follow.
[2016-02-25] MEDS: CARDIZEM 100 MG/NS 100 ML IV SCH (14:06)
[2016-02-25] MEDS: ATIVAN IV PRN (18:14)
[2016-02-25] MEDS: ZOFRAN IV PRN (18:14)
[2016-02-25] MEDS: D50W SYRINGE IV PRN (20:19)
[2016-02-25] MEDS ORDERED: VASELINE ONE (21:34)
[2016-02-25] MEDS: LIPITOR PO SCH (23:04)
[2016-02-25] MEDS: CELEXA PO SCH (23:04)
[2016-02-25] MEDS: PLAVIX PO SCH (23:04)
[2016-02-26] MEDS: ZOFRAN IV PRN ×2 (00:45→15:46)
[2016-02-26] MEDS: DUONEB (A & A) INH SCH ×5 (03:21→22:52)
[2016-02-26 04:33] LABS: ALLEN TEST YES; BE -3.1 mmoll (-3.0-3.0); BLOOD TYPE ARTERIAL; DRAW SITE R RADIAL; METHB 1.6 % (0.0-1.5); O2(CT) 19.2 mL/dL (15.0-23.0); PCO2(98.6) 39 mmHg (35-45); PO2(98.6) 97 mmHg (60-100); SAMPLE BLOOD; SAO2 99.1 % (95.0-100.0); THB 14.3 g/dL (11.5-17.4); pH(98.6) 7.36 (7.35-7.45)
[2016-02-26 04:35] LABS: MODALITY VENTIMASK
[2016-02-26] MEDS: ZOSYN 2.25 GM/NS 50 ML IV SCH ×3 (05:37→22:21)
[2016-02-26 06:13] LABS: HEMATOCRIT 34.7 % (37.0-47.0); HEMOGLOBIN 11.1 g/dL (12.0-16.0); MCH 29.6 PG (27-31); MCV 92.5 FL (81-99); MPV 13.2 FL (7.4-10.4); RBC 3.75 XMIL (4.2-5.4)
[2016-02-26] MEDS: HUMALOG SUBQ SCH ×4 (06:18→22:03)
[2016-02-26 06:21] LABS: ALBUMIN 2.9 g/dL (3.5-5.0); CALCIUM 8.5 mg/dL (8.8-10.2); POTASSIUM 3.3 mmol/L (3.5-5.1); TOTAL BILIRUBIN 0.41 mg/dL (0.20-1.00); TOTAL PROTEIN 5.6 g/dL (6.3-8.3)
[2016-02-26] MEDS: SYNTHROID IV SCH (06:21)
[2016-02-26] MEDS: SODIUM CHLORIDE 0.9% INJ PRN (06:23)
--- NOTE | 2016-02-26 07:50 | Diag Imaging Result Document ---
PROCEDURE NAME: CHEST-PORTABLE - 02/26/2016 AP PORTABLE CHEST: TIME: 0520 hours. FINDINGS: There is worsened alveolar pulmonary edema and probably worsened right pleural effusion. The endotracheal tube has been removed since the previous study of 02/25/2016. The NG tube has been removed as well. IMPRESSION: Worsened pulmonary edema and pleural effusions.
[2016-02-26] MEDS ORDERED: HEPARIN IV PRN (08:19)
[2016-02-26] MEDS ORDERED: TIGHT: 0.2 ML/HR MISC PRN (08:19)
[2016-02-26] MEDS ORDERED: NS 2,000 ML MISC PRN (08:19)
[2016-02-26] MEDS ORDERED: NS 2,000 ML ONE (08:47)
[2016-02-26] MEDS ORDERED: HEPARIN ONE (08:48)
[2016-02-26] MEDS: CARDIZEM 100 MG/NS 100 ML IV SCH (08:57)
[2016-02-26] MEDS: MIRALAX PO SCH (09:12)
[2016-02-26] MEDS: COREG PO SCH ×2 (09:12→22:21)
[2016-02-26] MEDS: LEVEMIR SUBQ SCH ×2 (11:29→22:04)
[2016-02-26] MEDS: HEPARIN SUBQ SCH ×2 (11:29→22:20)
[2016-02-26] MEDS: SOLU-CORTEF IV SCH ×2 (11:30→22:21)
[2016-02-26] MEDS: PROTONIX IV SCH (11:30)
--- NOTE | 2016-02-26 12:12 | PROGRESS NOTE ---
DATE: 02/26/2016 SUBJECTIVE: Patient reports breathing better. No acute issues as per nursing overnight. OBJECTIVE: Vital Signs: Temperature 97.6 degrees. Heart rate 82. Respiratory rate 20. Blood pressure 113/82. O2 saturation 98% on room air. General Exam: This is a 70-year-old female lying in bed, in no acute distress. HEENT: Head is normocephalic, atraumatic. Anicteric sclerae and pale conjunctivae. Mucous membranes moist. Neck: Supple. No JVD noted. No carotid bruits. No lymphadenopathy. No thyromegaly. Cardiovascular: S1 and S2 heard with 3/6 tricuspid regurgitation murmur. Also, there is inserted Tinel catheter in right chest wall where she is getting hemodialysis, Respiratory exam: Some fine, very few bibasilar crepitations. Patient is not using any accessory muscles or having work of breathing. Abdomen: Soft, nontender to palpation. Bowel sounds present. No organomegaly. Extremities: No clubbing, cyanosis, or edema. Peripheral pulses present in both legs. Neurological Exam: Patient is more alert and oriented, moves all 4 extremities. LABORATORY DATA: White cell count 7.59. Hemoglobin 11.1. Hematocrit 34.7. Platelets 191,000. Sodium 138. Potassium 3.3. Chloride 98. Bicarbonate 21. BUN 42. Creatinine 2.8. ASSESSMENT AND PLAN: 1. Acute hypoxemic respiratory failure. Patient presented with pulmonary edema, finally needed to be intubated, was extubated the day before yesterday, and she is breathing a little bit better. She is receiving hemodialysis for volume overload and, although the chest x-ray from today shows worsening pulmonary edema, clinically, the patient is looking fine with oxygen supplementation going down. At this time, we are going to continue with the same management. 2. Pulmonary edema. As we mentioned above. 3. Atrial fibrillation with rapid ventricular response. Currently, the patient's rate is well controlled. 4. Congestive heart failure. Ejection fraction 35%. We will continue with the same management. I think this was new onset atrial fibrillation. 5. Severe anxiety and panic attacks, stable. 6. Subclinical hypothyroidism. We will continue with the same management. 7. Shock liver, improved. Now transaminase is back to normal. 8. I think this patient, today, is doing much better so we are going to transfer this patient out of the unit today.
--- NOTE | 2016-02-26 13:35 | PROGRESS NOTE ---
DATE: 02/26/2016 SUBJECTIVE: She is asking for pain medicine. Nothing specific. She is also asking for Ativan. OBJECTIVE: Vital Signs: Blood pressure 113/82. Heart rate 82. Respirations 21. Afebrile. Intake and Output: Intake 600 mL. Output 400 mL. PHYSICAL EXAMINATION: General: Elderly woman lying in bed. No distress. Chronically ill. Skin: Warm and dry. Eyes: Conjunctivae are pink. Neck: Neck veins are not distended. Heart: Regular with a murmur and a gallop. Lungs: Equal breath sounds. No crackles or wheezes. Abdomen: Soft, nontender. Bowel sounds are present. Extremities: No edema, clubbing, or cyanosis. LABORATORY DATA: Sodium 138. Potassium 3.3. Chloride 98. Bicarbonate 21. BUN 42. Creatinine 2.8. IMPRESSION: 1. Respiratory failure. Multifactorial. We are attempting 3 L of fluid removal during treatment today. A 3 potassium bath. 2. Acid-base, acceptable. 3. Malnutrition. Again, changed over to hemodialysis. Begin nutritional management now that she is off the vent.
[2016-02-26] MEDS: MORPHINE IV PRN ×2 (15:32→22:34)
[2016-02-26] MEDS: ATIVAN IV PRN (18:27)
[2016-02-26] MEDS: PLAVIX PO SCH (22:21)
[2016-02-26] MEDS: LIPITOR PO SCH (22:22)
[2016-02-26] MEDS: CELEXA PO SCH (22:22)
[2016-02-27] MEDS: DUONEB (A & A) INH SCH ×7 (03:51→22:45)
[2016-02-27] MEDS: MORPHINE IV PRN ×2 (05:08→21:13)
[2016-02-27] MEDS: ZOSYN 2.25 GM/NS 50 ML IV SCH ×3 (05:08→21:13)
[2016-02-27] MEDS: SYNTHROID IV SCH (06:01)
[2016-02-27] MEDS: SODIUM CHLORIDE 0.9% INJ PRN (06:02)
[2016-02-27] MEDS: HUMALOG SUBQ SCH ×4 (06:21→21:43)
[2016-02-27 06:47] LABS: HEMOGLOBIN 11.2 g/dL (12.0-16.0); MCV 93.8 FL (81-99); MPV 12.4 FL (7.4-10.4); RBC 3.73 XMIL (4.2-5.4)
[2016-02-27 07:41] LABS: CALCIUM 8.8 mg/dL (8.8-10.2); POTASSIUM 3.5 mmol/L (3.5-5.1); TOTAL BILIRUBIN 0.43 mg/dL (0.20-1.00); TOTAL PROTEIN 5.1 g/dL (6.3-8.3)
--- NOTE | 2016-02-27 09:01 | Diag Imaging Result Document ---
PROCEDURE NAME: CHEST-PORTABLE - 02/27/2016 SINGLE FRONTAL RADIOGRAPH OF THE CHEST: COMPARISON: 02/26/2016. FINDINGS: Right vas cath is stable. Bilateral infiltrates suggesting edema are approximately stable. There are stable bilateral effusions. No definite new consolidation is identified. Cardiac silhouette is stable. IMPRESSION: Stable chest.
[2016-02-27] MEDS: COREG PO SCH ×2 (09:30→21:12)
[2016-02-27] MEDS: PROTONIX IV SCH (09:35)
[2016-02-27] MEDS: MIRALAX PO SCH (09:47)
[2016-02-27] MEDS: HEPARIN SUBQ SCH ×2 (09:49→21:12)
[2016-02-27] MEDS ORDERED: STERILE WATER INJ. ONE (10:23)
[2016-02-27] MEDS: LEVEMIR SUBQ SCH ×2 (10:48→21:44)
[2016-02-27] MEDS: SOLU-CORTEF IV SCH ×2 (11:35→22:56)
--- NOTE | 2016-02-27 15:46 | PROGRESS NOTE ---
DATE: 02/27/2016 SUBJECTIVE: The patient reports feeling better. No acute issues as per nursing staff overnight. OBJECTIVE: Vital Signs: Temperature 97.9 degrees, heart rate 66, respiratory rate 18, blood pressure 121/81 and O2 saturation 99% on 2 L nasal cannula. General Examination: This is a chronically ill-looking, 70-year-old female, lying in bed in no acute distress. HEENT: Head is normocephalic, atraumatic. Anicteric sclerae and pale conjunctivae. Neck: Supple. No JVD noted. No carotid bruits. Cardiovascular exam: S1, S2 heard. No murmurs. No gallops, or rubs. There is 3/6 tricuspid regurgitation murmur. There is also a tunnel catheter in the right chest wall where she is getting hemodialysis. Respiratory: Exam reveals a few bibasilar crepitations in both bases. Patient not using any accessory muscles. Abdomen: Soft. Nontender to palpation. Bowel sounds present. No organomegaly. Extremities: No clubbing, cyanosis, or edema. Peripheral pulses present in both legs. Neurological: Patient is more alert and oriented. Moves all 4 extremities. LABORATORY DATA: White cell count 8.09, hemoglobin 11.2, hematocrit 35.0, platelets 109. Sodium 139, potassium 3.5, chloride 94, bicarbonate 19, BUN 30, creatinine 2.2 and GFR 22. ASSESSMENT/PLAN: 1. Acute hypoxemic respiratory failure. The patient was intubated for pulmonary edema, and now with the hemodialysis we are moving this volume overload. The patient is responding nicely to treatment. The chest x-ray from today showed stable chest with bilateral infiltrates. Those effusions are stable. We will continue with the same management. We will send her home when Dr. Engel decides to continue with hemodialysis. 2. Atrial fibrillation with rapid ventricular response. By now, she is in atrial fibrillation. The rate is well controlled. 3. Congestive heart failure with ejection fraction of 30%. I guess this condition was triggered because of new onset atrial fibrillation. We will continue with the same management. 4. Severe anxiety and panic attacks, stable. 5. Subclinical hypothyroidism. We will continue with the same doses of levothyroxine. 6. Shock liver, resolved. Overall this patient is doing good, and we will try to send this patient to a rehab facility.
[2016-02-27] MEDS: CELEXA PO SCH (21:12)
[2016-02-27] MEDS: PLAVIX PO SCH (21:12)
[2016-02-27] MEDS: LIPITOR PO SCH (21:12)
[2016-02-28] MEDS: DUONEB (A & A) INH SCH ×6 (04:00→23:40)
[2016-02-28] MEDS: MORPHINE IV PRN ×2 (04:05→16:52)
[2016-02-28] MEDS: ZOSYN 2.25 GM/NS 50 ML IV SCH ×3 (04:06→20:04)
[2016-02-28] MEDS: SODIUM CHLORIDE 0.9% INJ PRN (06:02)
[2016-02-28] MEDS: SYNTHROID IV SCH (06:02)
[2016-02-28] MEDS: HUMALOG SUBQ SCH ×4 (06:03→21:00)
[2016-02-28 07:18] LABS: HEMATOCRIT 34.3 % (37.0-47.0); HEMOGLOBIN 11.2 g/dL (12.0-16.0); MCH 29.4 PG (27-31); MCHC 32.7 g/dL (33-37); MPV 12.6 FL (7.4-10.4); RBC 3.81 XMIL (4.2-5.4)
[2016-02-28 07:21] LABS: CALCIUM 8.9 mg/dL (8.8-10.2); POTASSIUM 3.3 mmol/L (3.5-5.1); TOTAL BILIRUBIN 0.46 mg/dL (0.20-1.00); TOTAL PROTEIN 5.7 g/dL (6.3-8.3)
--- NOTE | 2016-02-28 08:45 | Diag Imaging Result Document ---
PROCEDURE NAME: CHEST-PORTABLE - 02/28/2016 SINGLE FRONTAL RADIOGRAPH OF THE CHEST: COMPARISON: 02/27/2016. FINDINGS: Right Vas Cath is in stable position. Bilateral infiltrates suggesting pulmonary edema are stable to marginally improved. Bilateral pleural effusions are stable. No new consolidations are identified. Cardiac silhouette is stable. IMPRESSION: Stable to marginal improvement of pulmonary edema.
[2016-02-28] MEDS: COREG PO SCH ×2 (09:56→20:05)
[2016-02-28] MEDS: HEPARIN SUBQ SCH ×2 (09:56→20:05)
[2016-02-28] MEDS: MIRALAX PO SCH (09:57)
[2016-02-28] MEDS: SODIUM CHLORIDE 0.9% INJ SCH (09:57)
[2016-02-28] MEDS: LEVEMIR SUBQ SCH (09:57)
[2016-02-28] MEDS: PROTONIX IV SCH (10:11)
[2016-02-28] MEDS: SOLU-CORTEF IV SCH (10:12)
[2016-02-28] MEDS ORDERED: POTASSIUM CHLORIDE 60 MEQ in NS 500 ML IV ONE (10:19)
--- NOTE | 2016-02-28 15:27 | PROGRESS NOTE ---
DATE: 02/28/2016 SUBJECTIVE: Patient reports feeling better. No complaints today. OBJECTIVE: Vital Signs: Temperature 97.3 degrees, heart rate 71, respiratory rate 18, blood pressure 140/75, O2 saturation 100% on 2 L nasal cannula. General Examination: This is a chronically ill-looking and frail 70-year-old female lying in bed, in no acute distress. HEENT: Head is normocephalic, atraumatic. Anicteric sclerae and pale conjunctivae. Neck: Supple. No JVD noted. No carotid bruits. No lymphadenopathy. No thyromegaly. Cardiovascular: S1, S2 heard. No gallops, or rubs. There is 3/6 tricuspid regurgitation murmur. There is also a tunnel catheter in the right chest wall where she is getting hemodialysis. Respiratory: A few bibasilar crepitations almost resolved. The patient is not using any accessory muscles or having work of breathing. Abdomen: Soft, nontender to palpation. Bowel sounds present. No organomegaly. Extremities: No clubbing, cyanosis, or edema. Peripheral pulses present in both legs. Neurological: Patient is alert, oriented, and moves all 4 extremities. LABORATORY DATA: White cell count 9.08, hemoglobin 11.2, hematocrit 34.3, platelets 218,000. BMP shows hypokalemia of 3.3, BUN 42, creatinine 2.9. ASSESSMENT AND PLAN: 1. Acute hypoxemic respiratory failure secondary to pulmonary edema. By now, cardiology exam shows that this condition is resolving. Patient is getting hemodialysis yesterday. Apparently this patient is responding to this treatment. The patient is definitely feeling better and breathing better as well. 2. We will continue with the same management at this time. 3. Atrial fibrillation with rapid ventricular response. Rate controlled. 4. Chronic kidney disease. Now patient is getting hemodialysis to help with volume overload and the patient is responding to the therapy. We will see how long this patient will be on hemodialysis. We will follow recommendations from Dr. Engel. 5. Congestive heart failure with ejection fraction of 30%. Now stable. We will continue with the same management. 6. Anxiety and panic attacks, stable. 7. Subclinical hypothyroidism. We will continue with levothyroxine. 8. Shock liver. That condition is completely resolved. Overall, this patient is doing good. We will keep this patient in the hospital for the time that Nephrology considers necessary to do hemodialysis. Otherwise, she can be discharged to her [facility]. SACHIN
[2016-02-28] MEDS ORDERED: STERILE WATER INJ. ONE (17:03)
[2016-02-28] MEDS ORDERED: INSULIN PEN NEEDLES ONE (17:05)
[2016-02-28] MEDS ORDERED: NS 500 ML ONE (17:12)
[2016-02-28] MEDS: PLAVIX PO SCH (20:04)
[2016-02-28] MEDS: LIPITOR PO SCH (20:04)
[2016-02-28] MEDS: CELEXA PO SCH (20:05)
[2016-02-28] MEDS: ATIVAN IV PRN (20:05)
[2016-02-29] MEDS: LEVEMIR SUBQ SCH ×3 (01:29→21:24)
[2016-02-29] MEDS: DUONEB (A & A) INH SCH ×6 (03:55→23:35)
[2016-02-29] MEDS: ZOSYN 2.25 GM/NS 50 ML IV SCH ×3 (04:34→21:19)
[2016-02-29] MEDS: SOLU-CORTEF IV SCH ×3 (04:34→22:16)
[2016-02-29 06:12] LABS: HEMOGLOBIN 12.4 g/dL (12.0-16.0); MCH 29.5 PG (27-31); MCHC 32.6 g/dL (33-37); MCV 90.5 FL (81-99); MPV 12.4 FL (7.4-10.4); RBC 4.2 XMIL (4.2-5.4)
[2016-02-29] MEDS: HUMALOG SUBQ SCH ×3 (06:16→21:20)
[2016-02-29] MEDS: SYNTHROID IV SCH (06:16)
[2016-02-29 06:33] LABS: ALBUMIN 3.1 g/dL (3.5-5.0); CALCIUM 8.7 mg/dL (8.8-10.2); POTASSIUM 4.5 mmol/L (3.5-5.1); TOTAL BILIRUBIN 0.47 mg/dL (0.20-1.00); TOTAL PROTEIN 5.7 g/dL (6.3-8.3)
[2016-02-29] MEDS ORDERED: TIGHT: 0.2 ML/HR MISC PRN (06:55)
[2016-02-29] MEDS ORDERED: HEPARIN IV PRN (06:55)
[2016-02-29] MEDS ORDERED: NS 2,000 ML MISC PRN (06:55)
[2016-02-29 08:05] LABS: INR 1.3; PROTIME 13.8 Seconds (9.2-11.7)
--- NOTE | 2016-02-29 08:05 | Diag Imaging Result Document ---
PROCEDURE NAME: CHEST-PORTABLE - 02/29/2016 AP PORTABLE CHEST ERECT AT 0545 HOURS: FINDINGS: There are pleural effusions bilaterally, more so on the right than the left. The heart size is at the upper limits of normal. There appears to be some improvement in the pulmonary edema present on 02/28/2016. Otherwise, there has been no significant change. IMPRESSION: Slightly improved pulmonary edema. Residual pleural effusions, particularly on the right.
[2016-02-29] MEDS: HEPARIN SUBQ SCH ×2 (08:55→21:23)
[2016-02-29] MEDS: MIRALAX PO SCH (08:55)
--- NOTE | 2016-02-29 10:55 | PROGRESS NOTE ---
DATE: 02/29/2016 SUBJECTIVE: Patient is asking to get out of bed. She denies chest pain or increased work of breathing. OBJECTIVE: Her most recent vital signs are temperature 98.2, blood pressure 159 /93, heart rate 65, respirations 20. She is currently on 2 L nasal cannula. Last recorded saturation of 93%. She has had 660 in. She has had 1100 out. She is in a negative fluid balance for the last 3 days. LABS: This a.m., sodium 135, potassium 4.5, chloride 99, CO2 of 19, BUN 47, creatinine 3, glucose 117, calcium 8.7. Anion gap of 17, albumin of 3.1. White count 12.36, hemoglobin 12.4, hematocrit 38 with a platelet count of 247,000. PHYSICAL EXAMINATION: General: This is a 70-year-old white female. She is currently resting in bed. She appears in mild distress. Skin: Warm and dry. HEENT: Normocephalic , atraumatic. Conjunctivae pale. Mucous membranes are dry. Neck: Supple. Trachea midline. No JVD. Cardiovascular: Regular rate and rhythm. She has a positive murmur. No gallop noted. Lungs: Clear to auscultation anteriorly. Equal excursion. Diminished posterior bases on O2. Abdomen: Round, soft, nontender. Positive bowel sounds. Extremities: No edema. No clubbing or cyanosis. Neurological: Patient is confused today. She is requesting to be up out of bed. We will request that they bring her to dialysis in a chair. Integumentary: Patient has a tunnel catheter to the right chest wall. This is dry and intact. ASSESSMENT AND PLAN: 1. End-stage renal disease. Patient is due for her dialysis today. We will place her on appropriate potassium bath and dialyze her to her outpatient dry weight. 2. Electrolytes, these are stable. 3. Acid-base balance. This is acceptable. 4. Respiratory failure. This is multifactorial. Fluid volume has continued to be removed. She is in a negative fluid balance. We will continue to assist with dialysis. 5. Malnutrition. We will continue to monitor and encouraged patient to eat with at least 2 animal protein products daily. I would to thank you for allowing us to follow with this patient. Seen, data reviewed, discussed with Eduardo Farmer on 02/29/16. I agree with the above assessment and plan of care. rg Dictated by MONTY Richard for Cy Engel MD [facility]
[2016-02-29] MEDS: KLONOPIN PO PRN (11:56)
[2016-02-29] MEDS: NORCO-5 PO PRN ×3 (11:56→21:23)
[2016-02-29] MEDS: PROTONIX IV SCH (13:39)
[2016-02-29] MEDS: COREG PO SCH ×2 (13:41→21:23)
[2016-02-29] MEDS: VANCOMYCIN 1 GM/NS 250 ML IV SCH (14:25)
--- NOTE | 2016-02-29 16:18 | PROGRESS NOTE ---
DATE: 02/29/2016 SUBJECTIVE: Patient reports feeling better. No complaints today. OBJECTIVE: Vital Signs: Temperature 98.2 degrees, heart rate 74, respiratory rate 20, blood pressure 159/93, O2 saturation 94% on 2 L nasal cannula. General Examination : This is a chronically ill-looking and frail 70-year-old female lying in bed in no acute distress. HEENT: Head is normocephalic, atraumatic. Anicteric sclerae and pale conjunctivae. Mucous membranes moist. Neck: Supple. No JVD noted. No carotid bruits. No lymphadenopathy. No thyromegaly. Cardiovascular: S1, S2 heard. No gallops or rubs and there is 3 /6 tricuspid regurgitation murmur. There is also a tunneled catheter in the right chest wall where she is getting hemodialysis. Respiratory: Some few bibasilar crepitation, but definitely better in comparing with yesterday. The patient is not using any accessory muscles or having work of breathing. Abdomen: Soft, nontender to palpation. Bowel sounds present. No organomegaly. Extremities: No clubbing, cyanosis, or edema. Peripheral pulses present in both legs. Neurological: The patient is alert, oriented. Moves 4 extremities. LABORATORY DATA: White cell count 12.36, hemoglobin 12.4, hematocrit 38.0, platelets 247,000. BMP unremarkable except creatinine 2.0, BUN 47. ASSESSMENT/PLAN: 1. Acute hypoxemic respiratory failure secondary to pulmonary edema. This condition is slowly resolving with the help of hemodialysis. At this point will continue with the same treatment. I think is stable enough today and back to her baseline. Will continue with the same management. 2. Atrial fibrillation with rapid ventricular response. This condition is controlled. 3. Chronic kidney disease. Patient is getting hemodialysis daily. Will see if nephrology is planning to bring on chronic hemodialysis 3 times per week. Will talk with Dr. Engel. 4. Congestive heart failure with ejection fraction of 30%. Now this condition is stable. Will continue with the same management. 5. Anxiety and panic attacks stable. 6. Subclinical hypothyroidism. Will continue with levothyroxine. 7. Shock liver. The condition is completely resolved. Overall this patient is doing good. Was admitted to the hospital for congestive heart failure exacerbation and finally developed but pulmonary edema and this patient needs to be intubated and she spent few days in the intensive care unit but now she has been intubated for last 4 days and she is doing good, requiring less oxygen so I think at this time the patient is stable. Will try to send this patient to rehab facility either tomorrow or the day after. SACHIN
[2016-02-29] MEDS: PLAVIX PO SCH (21:23)
[2016-02-29] MEDS: LIPITOR PO SCH (21:23)
[2016-02-29] MEDS: CELEXA PO SCH (21:24)
[2016-03-01] MEDS: DUONEB (A & A) INH SCH ×6 (03:25→22:43)
[2016-03-01] MEDS: NORCO-5 PO PRN ×4 (05:27→18:54)
[2016-03-01] MEDS: ZOSYN 2.25 GM/NS 50 ML IV SCH ×4 (05:28→23:19)
[2016-03-01] MEDS: SYNTHROID IV SCH (06:24)
[2016-03-01] MEDS: HUMALOG SUBQ SCH ×4 (06:26→21:04)
[2016-03-01 07:10] LABS: ALBUMIN 3.1 g/dL (3.5-5.0); CALCIUM 8.7 mg/dL (8.8-10.2); POTASSIUM 3.6 mmol/L (3.5-5.1); TOTAL BILIRUBIN 0.57 mg/dL (0.20-1.00); TOTAL PROTEIN 5.7 g/dL (6.3-8.3)
[2016-03-01 07:14] LABS: HEMATOCRIT 37.3 % (37.0-47.0); HEMOGLOBIN 12.2 g/dL (12.0-16.0); MCH 29.6 PG (27-31); MCHC 32.7 g/dL (33-37); MCV 90.5 FL (81-99); MPV 12.7 FL (7.4-10.4); RBC 4.12 XMIL (4.2-5.4)
--- NOTE | 2016-03-01 07:39 | Diag Imaging Result Document ---
PROCEDURE NAME: CHEST-PORTABLE - 03/01/2016 SINGLE FRONTAL RADIOGRAPH OF THE CHEST: COMPARISON: 02/29/2016. FINDINGS: Right vas cath is in stable position. Pleural effusions are approximately stable. Interstitial thickening suggesting pulmonary edema is approximately stable. No definite new consolidation is identified. Cardiac silhouette is stable. IMPRESSION: Grossly stable chest.
[2016-03-01 08:23] LABS: ALLEN TEST YES; BE 0.8 mmoll (-3.0-3.0); BLOOD TYPE ARTERIAL; DRAW SITE R RADIAL; METHB 1.2 % (0.0-1.5); O2(CT) 17.5 mL/dL (15.0-23.0); PCO2(98.6) 34 mmHg (35-45); PO2(98.6) 66 mmHg (60-100); SAMPLE BLOOD; SAO2 95.9 % (95.0-100.0); THB 13.6 g/dL (11.5-17.4); pH(98.6) 7.46 (7.35-7.45)
[2016-03-01 08:24] LABS: MODALITY ROOM AIR
[2016-03-01] MEDS: COREG PO SCH ×2 (08:52→21:13)
[2016-03-01] MEDS: MIRALAX PO SCH (08:52)
[2016-03-01] MEDS: HEPARIN SUBQ SCH ×2 (08:52→21:13)
[2016-03-01] MEDS: LEVEMIR SUBQ SCH ×2 (08:57→21:13)
--- NOTE | 2016-03-01 10:27 | PROGRESS NOTE ---
DATE: 03/01/2016 SUBJECTIVE: Ms. Parry is resting quietly in bed. She states that she would like to get out of bed. She states that she is hungry and people are not feeding her. She remains slightly confused though she is oriented to person and place. OBJECTIVE: Vital Signs: Temperature 97.3 degrees. Blood pressure 122/63. Heart rate 88. Respirations 22. She is on room air. Last recorded saturation 95%. Intake and Output: She has had 0 recorded in. She has had 2.6 L out with 2 L on hemodialysis. The rest has been void. LABORATORY AND X-RAY DATA: Sodium is 134. Potassium 3.6. Chloride 94. CO2 of 23. BUN 25. Creatinine 2.1. Glucose 81. Her anion gap is 17. Calcium 8.7. Albumin 3.1. White count 11.7. Hemoglobin 12.2. Hematocrit 37.3 with a platelet count of 229,000. Her chest x-ray this a.m. shows grossly stable chest. Pleural effusions are stable. Pulmonary edema remains stable. PHYSICAL EXAMINATION: General: This is a 70-year-old white female. She is resting in bed. She is in no acute distress. Skin: Warm and dry. HEENT: Normocephalic, atraumatic. Conjunctiva is pale. She has dry mucous membranes. Neck: Supple. Trachea midline. No JVD. Cardiovascular: Regular rate and rhythm. She continues with an S4. Lungs: Clear to auscultation anteriorly. Equal excursion. Abdomen: Soft, nontender. Positive bowel sounds. Genitourinary: Not inspected. Minimal void with dialysis assist. Extremities: No edema. No clubbing or cyanosis. Integumentary: Tunneled catheter to the right chest wall. It is dry and intact. Neurological: As mentioned above. ASSESSMENT AND PLAN: 1. End-stage renal disease. Patient is due for dialysis in the a.m. No further need for intervention today. 2. Electrolytes. Acid-base balance. These remain stable. 3. Anemia. This remains stable. 4. Respiratory failure. This remains multifactorial though she is doing much better. 5. Malnutrition. Patient states that she is hungry. 6. Increased restlessness. We will have patient out of chair. We will request a Sharon vest for her safety and security for her to be up. She continues with PT evaluation. I would like to thank you for allowing us to follow with this patient. Seen, data reviewed, discussed with Eduardo Farmer on 03/01/15. I agree with the above assessment and plan of care. rg Dictated by MONTY Richard for Cy Engel MD [facility]
--- NOTE | 2016-03-01 13:53 | PROGRESS NOTE ---
DATE: 03/01/2016 SUBJECTIVE: Patient reports feeling better. No shortness of breath. No fever. No chills. OBJECTIVE: Vital Signs: Temperature 97.5 degrees, heart rate 24, respiratory rate 22, blood pressure 117/79, O2 saturation 100% on room air. General Examination: This is a chronically ill- looking and frail, 70-year-old female, lying in bed, in no acute distress. HEENT: Head is normocephalic, atraumatic. Neck: Supple. No JVD noted. No carotid bruits. Cardiovascular: S1, S2 heard. No gallops or rubs. There is 3/6 tricuspid regurgitation murmur. There is also a tunnel catheter in the right chest wall where she getting hemodialysis. Respiratory: A few bibasilar crepitations, definitely much better in comparing with yesterday. The patient is not using any accessory muscles or having work of breathing. Abdomen: Soft. Nontender to palpation. Bowel sounds present. No organomegaly. Extremities: No clubbing, cyanosis, or edema. Peripheral pulses present in both legs. Neurological: Patient alert and oriented x3. Moves 4 extremities. LABORATORY DATA: White cell count 11.70, hemoglobin 12.2, hematocrit 37.3, platelets 229,000. BMP unremarkable except 2.1 creatinine and 25 BUN. ASSESSMENT AND PLAN: 1. Acute hypoxemic respiratory failure secondary to pulmonary edema. This condition is almost resolved with the help of hemodialysis. We will continue with the same management. 2. Atrial fibrillation with rapid ventricular response. That condition is controlled and now this patient is in sinus rhythm. 3. Chronic kidney disease. Patient is on hemodialysis. Dr. Engel is following this patient. 4. Congestive heart failure with an ejection fraction of 30%. Now this condition is stable. We will continue with the same management. 5. Anxiety and panic attacks. Patient is on Klonopin. Will continue with the same management. 6. Subclinical hypothyroidism. We will continue with levothyroxine. 7. Shock liver. That condition has completely resolved. 8. Overall this patient is doing good. We are waiting for a bed in [facility] for her.
[2016-03-01] MEDS ORDERED: ZOFRAN PO PRN (16:04)
[2016-03-01] MEDS: PLAVIX PO SCH (21:13)
[2016-03-01] MEDS: LIPITOR PO SCH (21:13)
[2016-03-01] MEDS: KLONOPIN PO PRN (21:13)
[2016-03-01] MEDS: CELEXA PO SCH (21:14)
[2016-03-02] MEDS: NORCO-5 PO PRN ×3 (00:05→13:11)
[2016-03-02] MEDS: DUONEB (A & A) INH SCH ×2 (03:38→07:53)
[2016-03-02] MEDS: SYNTHROID PO SCH ×2 (05:35→06:03)
[2016-03-02] MEDS: PRILOSEC PO SCH ×2 (05:35→06:03)
[2016-03-02] MEDS: ZOSYN 2.25 GM/NS 50 ML IV SCH ×2 (05:36→13:12)
[2016-03-02] MEDS: HUMALOG SUBQ SCH (06:19)
[2016-03-02 06:37] LABS: HEMATOCRIT 39.2 % (37.0-47.0); HEMOGLOBIN 12.8 g/dL (12.0-16.0); MCHC 32.7 g/dL (33-37); MCV 88.7 FL (81-99); MPV 12.5 FL (7.4-10.4); RBC 4.42 XMIL (4.2-5.4)
[2016-03-02] MEDS ORDERED: NS 2,000 ML MISC PRN (07:09)
[2016-03-02] MEDS ORDERED: TIGHT: 0.2 ML/HR MISC PRN (07:09)
[2016-03-02] MEDS ORDERED: HEPARIN IV PRN (07:09)
[2016-03-02 07:11] LABS: ALBUMIN 3.1 g/dL (3.5-5.0); CALCIUM 9.1 mg/dL (8.8-10.2); POTASSIUM 3.8 mmol/L (3.5-5.1); TOTAL BILIRUBIN 0.54 mg/dL (0.20-1.00)
[2016-03-02] MEDS ORDERED: INSULIN PEN NEEDLES ONE (07:24)
[2016-03-02 07:27] VITALS: BP 125/88
--- NOTE | 2016-03-02 08:06 | Diag Imaging Result Document ---
PROCEDURE NAME: CHEST-PORTABLE - 03/02/2016 AP PORTABLE CHEST ERECT AT 0555 HOURS: FINDINGS: There is cardiomegaly. There are bilateral pleural effusions. There is interstitial pulmonary edema. Compared to 03/11/2016, there has been slight improvement with regard to the right lower lobe. IMPRESSION: Pulmonary edema and pleural effusions with cardiomegaly.
[2016-03-02] MEDS ORDERED: HEPARIN ONE (08:49)
[2016-03-02] MEDS ORDERED: NS 2,000 ML ONE (08:49)
[2016-03-02] MEDS: VANCOMYCIN 1 GM/NS 250 ML IV SCH (10:49)
[2016-03-02] MEDS: KLONOPIN PO PRN (13:11)
--- NOTE | 2016-03-02 13:53 | DISCHARGE SUMMARY ---
ADMISSION DATE: 02/18/2016 DISCHARGE DATE: 03/02/2016 CONSULTATIONS: Dr. Cy Engel with nephrology. Dr. Wendy Avelar with cardiology. Dr. Jevon Izquierdo with pulmonology. Dr. Bird Rodriguez with general surgery. PERTINENT PROCEDURES: 1. Right-sided tunnel dialysis catheter placement with ultrasound and fluoroscopic guidance by Dr. Bird Rodriguez. 2. Head CT showed apparently extra-axial mass on the right in the parasellar region, may represent a hemangioma or less likely a giant aneurysm. 3. Chest CT showed improved pneumonia and ascites, bilateral pleural effusion. 4. Second chest CT showed worsened bilateral pleural effusions, atelectasis, and possibility of pneumonia particularly in the upper left could not be excluded. 5. Chest x-ray on 03/02/2016 show pulmonary edema and pleural effusions with cardiomegaly. DISCHARGE DIAGNOSES: 1. Metabolic encephalopathy secondary to pneumonia and sepsis, slowly improved. 2. Acute hypoxic respiratory failure secondary to pulmonary edema, resolving with hemodialysis. 3. Atrial fibrillation with rapid ventricular response. Patient now in sinus rhythm. 4. Chronic kidney disease. Patient on hemodialysis. 5. Congestive heart failure with an ejection fraction of 30%, stable. 6. Anxiety and panic attacks. Continue with Klonopin. 7. Subclinical hypothyroidism. Continue levothyroxine. 8. Shock liver, resolved. 9. End-stage renal disease, on hemodialysis. Her electrolytes and acid base and anemia remain stable. Patient was previously on peritoneal dialysis. Now requiring hemodialysis 10. Healthcare-acquired pneumonia, resolved. 11. Hypovolemic hyponatremia, resolved. 12. Diffuse esophageal spasms, on PPI. 13. New diagnosis of extra-axial mass in the brain, most likely a meningioma. HOSPITAL COURSE: Briefly, Ms. Parry is a 70-year-old female, known to our service. She has a history of end-stage renal disease on peritoneal dialysis, severe systolic congestive heart failure with an EF between 30 and 35%, as well as multiple other medical comorbidities, who presented to the ED because she became agitated at home, complained of shortness of breath, lower extremity edema. The patient was unable to give any type of reliable history giving her mental status. Her daughter at the bedside stated that over the last 24-48 hours the patient had been more confused, becoming agitated, and felt like she could not catch her breath. She was recently discharged from our service with pneumonia, felt to be probable aspiration due to diffuse esophageal spasm which was discovered on a barium swallow. However, patient at that time refused any types of treatment and she was discharged to [facility] on discharge. Since that time the patient had become more weak and ultimately the day before admission and the day of admission she was agitated, complaining of shortness of breath. In the ED she was noted to have leukocytosis. Blood gas was normal. She did have an elevated lactate. Chemistry did show mild hyponatremia with a lactic acid of 2.5. Chest x-ray showed diffuse pulmonary edema, questionable infiltrate in the right lower lobe. Patient was admitted for metabolic encephalopathy secondary to pneumonia and sepsis. She was started on broad-spectrum antibiotics as well as bronchodilators. Dr. Engel was consulted to continue with her peritoneal dialysis and for her acute on chronic systolic heart failure; again, will need dialysis instead of diuresis. She was placed on the sepsis protocol. CT of the chest did show improved pneumonia and ascites and bilateral pleural effusions. The patient was set up on cycler over not by Dr. Engel. The patient did go in to atrial fibrillation with rapid ventricular response. She was started on a Cardizem drip and transferred from the floor to [facility] with a cardiology consult. The patient was initiated on beta estephania with Coreg. While in the [facility] patient did have hypotension. Her Cardizem drip was also decreased. Ultimately patient had gotten a mix of Ativan, Celexa, Klonopin, and morphine, as well as on her peritoneal dialysis. Her blood pressure ended up dropping systolically into the 50s. Her heart rate maintained in the 80s. Her oxygen saturation was in the 70s. She was placed on a non-rebreather which did improve her O2 up to the 90s. Dr. Engel stopped the peritoneal dialysis for that night and she was given a 2 L normal saline bolus to help improve pressures. The patient was moved to the ICU. After being moved to the ICU patient had a decline in her respiratory status and she had become unresponsive. The patient was intubated and placed on a Levophed drip and repeat blood cultures as well as urine was ordered. Pulmonology added an elevated and started on enteral nutrition. Continued to monitor for sepsis. The patient underwent a 2nd CT scan of the chest that did show bilateral pleural effusions with some basilar atelectasis. She was evaluated for hemodialysis and placed on her peritoneal dialysis. Dr. Bird Rodriguez was consulted. He did a right-sided tunneled dialysis catheter placement and patient started undergoing hemodialysis. The patient was able to be extubated a few days later. She was observed in the ICU for a couple of days and she was transferred to the medical floor. The patient is still having intermittent episodes of confusion but has improved since admission. The patient's respiratory status has greatly improved with hemodialysis. Her atrial fibrillation has resolved. She is in sinus rhythm. She is working with PT. [facility] has approved the patient. She reports feeling better. No shortness of breath. Vital signs at the time of discharge, temperature is 97.4 degrees, heart rate 80, respirations 19, blood pressure 125/88, O2 is 96% on 2 L nasal cannula. The patient is currently in hemodialysis at this time and after that she will be discharged to [facility]. DISCHARGE DIET: Full liquid and Nepro shakes with each meal. DISCHARGE MEDICATIONS: As per Dr. Spivey. 1. Hydrocodone acetaminophen 7.5/500 one each p.o. p.r.n. 2. Lipitor 80 mg p.o. q.a.m. 3. Clonazepam 0.5 mg p.o. q.p.m. 4. Plavix 75 mg p.o. q.p.m. 5. Synthroid 88 mcg p.o. daily. 6. Colace 100 mg p.o. q.a.m. 7. Nortriptyline 10 mg p.o. q.p.m. 8. MiraLAX 17 g p.o. daily. 9. Flexeril 10 mg p.o. q.12 hours. 10. Ativan 1 mg p.o. t.i.d. p.r.n. 11. DuoNeb 3 mL inhaled q.2 hours p.r.n. wheezing. 12. Celexa 20 mg p.o. at bedtime. 13. Levemir 10 units subcutaneously q.p.m. 14. Levemir 10 units subcutaneously q.a.m. 15. Procardia 10 mg p.o. t.i.d. 16. Protonix 40 mg p.o. daily. 17. Coreg 6.25 mg p.o. q.12 hours. FOLLOWUP: The patient is being discharged to [facility] after hemodialysis. She can follow up with her primary care physician, Dr. Bryce Dutta, and Dr. Sandra, her telepathist in [place], after rehab. DISCHARGE TIME: 40 minutes. Dictated by MONTY Loaiza for Nik Acosta MD
--- NOTE | 2016-03-02 20:58 | PROGRESS NOTE ---
DATE: 03/02/2016 TIME SEEN: 0755. SUBJECTIVE: Ms. Parry is resting quietly in bed. She denies any chest pain. No increased work of breathing. States that she is feeling better. She tolerated walking to the nurses station yesterday and sat up most of the day. OBJECTIVE: Vital signs: Her most recent vital signs, her temperature 97.4 degrees, blood pressure 125/88, heart rate 80, respirations 19, she is currently on room air. Last recorded saturation 96%. She had 560 in, she has had 0 recorded out with need for hemodialysis. PHYSICAL EXAMINATION: General: This is a 70-year-old white female. She is currently resting in bed. She denies any pain. She is in no acute distress. Skin: Warm and dry. HEENT: Normocephalic, atraumatic. Conjunctivae pink. She has ANGIE. Mucous membranes moist. Neck: Supple. Trachea midline. Cardiovascular: Regular rate and rhythm. She has an S4 present. Lungs: Clear to auscultation anteriorly. Equal excursion. Abdomen: Soft, nontender. Positive bowel sounds. She has a PD catheter to the right lower quadrant. No redness or drainage noted. Genitourinary: Not inspected. Integumentary: Patient has a tunnel catheter to the right chest wall. This is dry and intact. Extremities: No edema, no clubbing or cyanosis. Neurological: Patient is alert to person and to place. LABORATORY: This a.m., sodium 134, potassium 3.8, chloride 95, CO2 22, BUN 30, creatinine 2.6, glucose 86. Her anion gap was 17. Calcium 9.1, albumin 3.1. White count 10.92 , hemoglobin 12.8, hematocrit 39.2, platelet count 237,000. ASSESSMENT AND PLAN: 1. End-stage renal disease. Patient is due for dialysis this a.m. We will plan to place her on a 3K bath. She is to dialyze for 3.5 hours. We will attempt to pull 2 L. 2. Electrolytes and acid-base balance. These are stable. 3. Anemia. This remains low but stable. 4. Respiratory failure. This has improved. 5. Increased restlessness. This has improved with patient getting out of bed. I would like to thank you for allowing us to follow with this patient. Seen, data reviewed, discussed with Eduardo Farmer on 03/02/16. I agree with the above assessment and plan of care. rg Dictated by MONTY Richard for [facility] Engel MD [facility]
== END 2016-03-02 14:25 | DRG 870 ==
LOC: ED 11:44 → 3N 18:07 → 3S 02-20 13:00 → ICU 02-20 23:51 → 3N 02-26 13:25
PROVIDERS: ATTEND Internal Medicine
PROC: 3E1M39Z Irrigation of Peritoneal Cavity using Dialysate, Percutaneous Approach (ICD-10-PCS; 2016-02-18)
PROC: 5A1955Z Respiratory Ventilation, Greater than 96 Consecutive Hours (ICD-10-PCS; principal; 2016-02-20)
PROC: 0DH67UZ Insertion of Feeding Device into Stomach, Via Natural or Artificial Opening (ICD-10-PCS; 2016-02-20)
PROC: 0BH17EZ Insertion of Endotracheal Airway into Trachea, Via Natural or Artificial Opening (ICD-10-PCS; 2016-02-20)
PROC: 3E0G76Z Introduction of Nutritional Substance into Upper GI, Via Natural or Artificial Opening (ICD-10-PCS; 2016-02-21)
PROC: 02HV33Z Insertion of Infusion Device into Superior Vena Cava, Percutaneous Approach (ICD-10-PCS; 2016-02-24)
PROC: B5181ZA Fluoroscopy of Superior Vena Cava using Low Osmolar Contrast, Guidance (ICD-10-PCS; 2016-02-24)
PROC: 5A1D60Z (ICD-10-PCS; 2016-02-24)
DX: A41.9 Sepsis, unspecified organism (principal); J96.01 Acute respiratory failure with hypoxia; K72.00 Acute and subacute hepatic failure without coma; J18.9 Pneumonia, unspecified organism; G93.41 Metabolic encephalopathy; I50.23 Acute on chronic systolic (congestive) heart failure; E46 Unspecified protein-calorie malnutrition; R64 Cachexia; N18.6 End stage renal disease; E87.1 Hypo-osmolality and hyponatremia; I13.2 Hypertensive heart and chronic kidney disease with heart failure and with stage 5 chronic kidney disease, or end stage renal disease; E11.22 Type 2 diabetes mellitus with diabetic chronic kidney disease; I48.91 Unspecified atrial fibrillation; R65.20 Severe sepsis without septic shock; Y95 Nosocomial condition; E86.1 Hypovolemia; K22.4 Dyskinesia of esophagus; I25.10 Atherosclerotic heart disease of native coronary artery without angina pectoris; E78.5 Hyperlipidemia, unspecified; K21.9 Gastro-esophageal reflux disease without esophagitis; F41.8 Other specified anxiety disorders; D32.0 Benign neoplasm of cerebral meninges; E87.6 Hypokalemia; E83.42 Hypomagnesemia; I25.5 Ischemic cardiomyopathy; M81.0 Age-related osteoporosis without current pathological fracture; E06.3 Autoimmune thyroiditis; I07.1 Rheumatic tricuspid insufficiency; Z91.19 Patient's noncompliance with other medical treatment and regimen; Z95.0 Presence of cardiac pacemaker; Z87.891 Personal history of nicotine dependence; Z79.02 Long term (current) use of antithrombotics/antiplatelets; Z79.4 Long term (current) use of insulin; Z79.899 Other long term (current) drug therapy; Z95.5 Presence of coronary angioplasty implant and graft; Z91.15 Patient's noncompliance with renal dialysis
CPT/HCPCS: 31500; 70450; 71010; 71250; 76000; 80048; 80053; 80061; 80074; 80202; 81001; 82140; 82533; 82550; 82805; 82948; 83605; 83735; 83880; 84100; 84439; 84443; 84484; 85025; 85027; 85610; 85730; 86376; 87040; 87070; 87088; 87205; 93005; 93010; 94002; 94003; 94640; 94761; 94762; 94799; 96365; 96367; 96375; C1750; C9113; G0480; J0330; J0696; J1630; J1644; J1720; J1815; J1940; J2060; J2270; J2405; J2543; J3370; J3475; J3480; J7030; J7040; J7050; P9047; 97001-GP; 97116-GP; 97530-GP; S0164

== ENCOUNTER 2016-04-25 02:23 | Emergency (ER) | payer OTHER ==
--- NOTE | 2016-04-25 02:55 | PROVIDER DOCUMENTATION ---
HPI-General Adult - General Source: family - History of Present Illness -Gen Adult Nature of Presenting Problems: Pt is a 71 yof who presents to ER with CC of anxiety/panic attacks. Family reports that pt was admitted to the hospital in January-February and coded while in the hospital and has been home for approximately 3 weeks now, but has become progressively more altered . Family reports that pt is always short of breath, anxious, and has difficulty sleeping due to her anxiety. On exam, pt's B /P was 112/87 and pt was moderately lethargic, but was awake. Location of Pain/Injury: reports: none Pain Radiation: reports: no radiation Quality of Pain: reports: none Severity: reports: moderate Onset/Duration: reports: unsure (chronic since last discharge) Timing: reports: constant Associated Symptoms: reports: anxiety, shortness of breath. denies: arm pain, back/neck pain, chest pain, cough, diaphoresis, diarrhea, dizziness, fatigue, fever/chills, nausea, sensory/motor loss, pain with inspiration, syncope, vomiting, weakness, trouble walking Similar Symptoms Previously?: Yes Recently seen or treated by another doctor?: Yes <Anand Feldman - Last Filed: 04/25/16 02:50> - General Source: patient - History of Present Illness -Gen Adult Location of Pain/Injury: reports: upper extremity, hand(s) Pain Radiation: reports: no radiation Quality of Pain: reports: aching Onset/Duration: reports: gradual Context/Activities at Onset: reports: light activity Modifying Factors: improves with: nothing Associated Symptoms: reports: chest pain, joint pain Similar Symptoms Previously?: Yes Recently seen or treated by another doctor?: Yes <Felix Sanchez - Last Filed: 04/25/16 04:37> - General Chief Complaint: Anxiety Stated Complaint: "THINK I'M HAVING PANIC ATTACKS" Time Seen by Provider: 04/25/16 02:40 Allergies/Adverse Reactions: Patient Allergies Allergy/AdvReac Type Severity Reaction Status Date / Time codeine [Codeine] Allergy Severe ITCHING Verified 02/18/16 12:25 Home Medications: Home Medication List Medication Instructions Recorded Confirmed Last Taken Type Atorvastatin Calcium [Lipitor] 80 mg PO QPM 07/11/12 02/18/16 02/17/16 History Clopidogrel Bisulfate [Plavix] 75 mg PO QPM 07/11/12 02/18/16 02/17/16 History Docusate Sodium [Colace] 100 mg PO QAM 03/05/15 02/18/16 02/17/16 History Nortriptyline HCl [Pamelor] 10 mg PO QPM 03/05/15 02/18/16 02/17/16 History Polyethylene Glycol 3350 [Miralax] 17 gm PO DAILY 03/05/15 02/18/16 02/17/16 History Cyclobenzaprine [Flexeril] 10 mg PO Q12H PRN PRN #30 tablet 03/08/15 02/18/16 Rx Citalopram [Celexa] 20 mg PO QHS #0 tablet 01/18/16 02/18/16 02/17/16 Rx Insulin Detemir [Levemir] 10 unit SUBQ QPM #0 insuln.pen 01/18/16 02/18/1602/16 Rx Nifedipine [Procardia] 10 mg PO TID #0 capsule 01/18/16 02/18/16 02/17/16 Rx Insulin Detemir [Levemir] 10 unit SUBQ QAM #0 insuln.pen 01/19/16 02/18/1602/16 Rx Pantoprazole [Protonix] 40 mg PO DAILY #0 tablet 01/19/16 02/18/16 02/17/16 Rx Albuterol 2.5MG/Ipratrop 0.5MG 3 ml INH Q2-4H PRN PRN #0 neb 03/02/16 02/18/16 02/17/16 Rx [Duoneb (A & A)] Carvedilol [Coreg] 6.25 mg PO Q12HR #60 tablet 03/02/16 Unknown Rx Clonazepam 0.5 mg PO QPM #30 tablet 03/02/16 Unknown Rx Hydrocodone/APAP 5 mg/325 mg 1 each PO Q4H PRN PRN #30 tablet 03/02/16 Unknown Rx [[place]-5] Levothyroxine [Synthroid] 88 microgm PO QPM #60 tablet 03/02/16 Unknown Rx Review of Systems - Adult - REVIEW OF SYSTEMS - ADULT Constitutional: denies: chills, fever, fatique, night sweats, weight gain, weight loss Eyes: reports: no symptoms reported Ears, Nose, Mouth & Throat: reports: no symptoms reported Cardiovascular: denies: chest pain, edema, heart murmur, irregular heart rate, orthopnea, palpitations, poor circulation, PND, syncope Respiratory: denies: chronic cough, cough, dyspnea on exertion, excessive sputum production, hemoptysis, pleurisy, shortness of breath, wheezing Gastrointestinal: reports: no symptoms reported Genitourinary: reports: no symptoms reported Musculoskeletal: reports: no symptoms reported Integumentary: reports: no symptoms reported Neurological: reports: no symptoms reported Psychiatric: reports: anxiety, emotional problems, insomnia, panic attacks. denies: anti-depressant use, alcohol/drug dependence, depression, suicidal thoughts Endocrine: reports: no symptoms reported Hematologic/Lymphatic: reports: no symptoms reported Allergic/Immunologic: reports: no symptoms reported All Other Systems: Reviewed and Negative <Anand Feldman - Last Filed: 04/25/16 02:50> - REVIEW OF SYSTEMS - ADULT Constitutional: reports: no symptoms reported Eyes: reports: no symptoms reported Ears, Nose, Mouth & Throat: reports: no symptoms reported Cardiovascular: reports: no symptoms reported Respiratory: reports: no symptoms reported Gastrointestinal: reports: no symptoms reported Genitourinary: reports: no symptoms reported Musculoskeletal: reports: no symptoms reported Integumentary: reports: no symptoms reported Neurological: reports: no symptoms reported Psychiatric: reports: no symptoms reported Endocrine: reports: no symptoms reported Hematologic/Lymphatic: reports: no symptoms reported Allergic/Immunologic: reports: no symptoms reported All Other Systems: Reviewed and Negative <Felix Sanchez - Last Filed: 04/25/16 04:37> Past History - Adult - PAST MEDICAL HISTORY-ADULT Review of Records: reports: Nursing Assessment Review, Medications Reviewed Cardiovascular: reports: CAD, HTN, hyperlipidemia, OR Gastrointestinal: reports: GERD Genitourinary: reports: dialysis (peritoneal), ESRD Psychiatric: reports: anxiety Endocrine/Immune: reports: Diabetes, thyroid disorder (hypothyroidism) - PRIOR SURGERIES/PROCEDURES Surgical/Procedure History: reports: cholecystectomy, hysterectomy, other ( bilateral cataracts/colonoscopy) - IMMUNIZATION STATUS Childhood Immunizations: See Nurse Assessment Flu Vaccine: See Nurse Assessment <Anand Feldman - Last Filed: 04/25/16 02:50> - PAST MEDICAL HISTORY-ADULT Review of Records: reports: Old Records Reviewed, Nursing Assessment Review, Medications Reviewed, Social history reviewed & non-contributory. Major Childhood Illnesses: reports: denies history Cardiovascular: reports: denies history Respiratory: reports: denies history Gastrointestinal: reports: denies history Obstetrical/Gynecological: reports: denies history Genitourinary: reports: denies history Musculoskeletal: reports: denies history Neurological: reports: denies history Endocrine/Immune: reports: denies history Other Conditions: reports: denies history - FAMILY HISTORY Family History: reviewed, not pertinent <Felix Sanchez - Last Filed: 04/25/16 04:37> Physical Exam-General - PHYSICAL EXAM-ADULT Initial Vital Signs Reviewed: Yes - CONSTITUTIONAL General Appearance: alert, mild distress, thin, anxious, lethargic. negative: appears well, no apparent distress, moderate distress, severe distress, cachetic , obese, slow to respond, obtunded, combative - RESPIRATORY Respiratory: chest non-tender, lungs clear, normal breath sounds. negative: respiratory distress, decreased breath sounds, accessory muscle use, wheezing - CARDIOVASCULAR Cardiovascular: normal peripheral pulses, regular rate, rhythm. negative: bradycardia, tachycardia, irregularly irregular - PSYCHIATRIC Psych/Mental Status: normal thought content, normal thought process, oriented x 3, anxious, disheveled, depressed affect. negative: normal mood/affect, disoriented x 3, paranoid, tearful <Anand Feldman - Last Filed: 04/25/16 02:50> - PHYSICAL EXAM-ADULT Initial Vital Signs Reviewed: Yes - CONSTITUTIONAL General Appearance: appears well - EYES Eyes: EOM palsy - HEAD, EARS, NOSE, MOUTH & THROAT HENMT: normocephalic/atraumatic - NECK Neck: non-tender - RESPIRATORY Respiratory: chest non-tender - CARDIOVASCULAR Cardiovascular: normal peripheral pulses - GASTROINTESTINAL (ABDOMEN) Abdominal Exam: normal bowel sounds, non tender <Felix Sanchez - Last Filed: 04/25/16 04:37> Progress - EKG 1 Time of EKG reading by physician:: 02:40 EKG Read and Signed by:: Felix Sanchez EKG Interpretation (*Must complete 3 of following elements*): Abnormal ( Possible L atrial enlargement; L axis deviation; LVH; ST & T wave abnormality, consider lateral ischemia;) Rate: 86 Rhythm: Sinus rhythm with frequent and consecutive PVC <Anand Feldman - Last Filed: 04/25/16 02:50> Departure <Anand Feldman - Last Filed: 04/25/16 02:50> - Departure Time of Disposition Order: 04:00 Certified Medical Emergency: Emergent <Felix Sanchez - Last Filed: 04/25/16 04:37> - Departure DIAGNOSIS: Altered mental state Disposition: ADMITTED INPATIENT 09 Condition: Stable Attestation - Scribe Verification/Attestation Scribe:: Anand Feldman Acting as Scribe for:: Felix Sanchez Scribe documention review:: This chart was documented by a scribe and accurately reflects the service the provider performed and the decisions made by the provider. <Anand Feldman - Last Filed: 04/25/16 02:50> Physician Attestation
[2016-04-25 03:10] LABS: BASO% 0.5 % (0.0-0.8); EOS# 0.06 X1000 (0.0-0.7); EOS% 0.5 % (0.0-10.0); HEMATOCRIT 39.2 % (37.0-47.0); HEMOGLOBIN 13.5 g/dL (12.0-16.0); IMM GRAN# 0.02 X1000 (0.0-0.04); IMM GRAN% 0.2 % (0.0-0.5); LYMPH# 1.45 X1000 (1.2-3.4); LYMPH% 11.6 % (20.5-51.1); MANUAL DIFF NEEDED? NO; MCH 30.3 PG (27-31); MCHC 34.4 g/dL (33-37); MCV 87.9 FL (81-99); MONO# 0.67 X1000 (0.11-0.59); MONO% 5.4 % (1.7-9.3); MPV 12.9 FL (7.4-10.4); NEUT% 81.8 % (42.2-75.2); PLT 165 X1000 (130-400); RBC 4.46 XMIL (4.2-5.4)
[2016-04-25 03:17] LABS: INR 1.26; PROTIME 13.4 Seconds (9.2-11.7); PTT 24.5 Seconds (22.0-36.0)
[2016-04-25 03:27] LABS: ALLEN TEST YES; BE -8.6 mmoll (-3.0-3.0); BLOOD TYPE ARTERIAL; DRAW SITE R BRACHIAL; METHB 1.5 % (0.0-1.5); O2(CT) 17.6 mL/dL (15.0-23.0); PCO2(98.6) 28 mmHg (35-45); PO2(98.6) 82 mmHg (60-100); SAMPLE BLOOD; SAO2 96.9 % (95.0-100.0); THB 13.4 g/dL (11.5-17.4); pH(98.6) 7.35 (7.35-7.45)
[2016-04-25 03:28] LABS: MODALITY ROOM AIR
[2016-04-25 03:28] LABS: ALBUMIN 3.6 g/dL (3.5-5.0); CALCIUM 9.2 mg/dL (8.8-10.2); MAGNESIUM 1.8 mg/dL (1.5-2.7); POTASSIUM 5.3 mmol/L (3.5-5.1); TOTAL BILIRUBIN 0.51 mg/dL (0.20-1.00); TOTAL PROTEIN 6.2 g/dL (6.3-8.3)
[2016-04-25 03:40] LABS: URINE MICRO REVIEW NEEDED? NO; URINE SOURCE CATH
[2016-04-25 03:43] LABS: BILIRUBIN URINE NEGATIVE (NEGATIVE); BLOOD URINE TRACE (NEGATIVE); COLOR YELLOW; GLUCOSE URINE >1000 mg/dL (NEGATIVE); LEUKOCYTES URINE NEGATIVE (NEGATIVE); NITRITE URINE NEGATIVE (NEGATIVE); PH URINE 5.5; PROTEIN URINE 200 mg/dL (NEGATIVE); SP GRAVITY URINE 1.019; TURBIDITY URINE CLEAR (CLEAR); UROBILINOGEN URINE NORMAL (NORMAL)
[2016-04-25 03:44] LABS: UR EPITHELIAL CELLS <10 /HPF (<10); URINE BACTERIA NEGATIVE /HPF; URINE RBC <10 /HPF (<10); URINE WBC <10 /HPF (<10)
[2016-04-25 04:13] LABS: UR AMPHETAMINES QUAL NONE DETECTED (NONE DETECT); UR BARBITUATES QUAL NONE DETECTED (NONE DETECT); UR BENZODIAZEPIN QUAL PRESUMPTIVE POSITIVE (NONE DETECT); UR OPIATES QUAL PRESUMPTIVE POSITIVE (NONE DETECT)
[2016-04-25 04:14] LABS: UR CANNABINOIDS QUAL NONE DETECTED (NONE DETECT); UR COCAINE QUAL NONE DETECTED (NONE DETECT); UR METHADONE QUAL NONE DETECTED (NONE DETECT); UR OXYCODONE QUAL NONE DETECTED (NONE DETECT); UR PCP QUAL NONE DETECTED (NONE DETECT)
[2016-04-25] MEDS ORDERED: CELEXA PO ONE (04:54)
[2016-04-25] MEDS ORDERED: KLONOPIN PO ONE (04:54)
[2016-04-25] MEDS ORDERED: HUMULIN R SUBQ ONE (04:59)
[2016-04-25 05:01] VITALS: BP 117/87
--- NOTE | 2016-04-25 05:33 | EKG Report ---
Test Performed on : 04/25/2016 02:40:15 AM Test Reason : weakness Blood Pressure : / mmHG Vent. Rate : 086 BPM Atrial Rate : 086 BPM P-R Int : 162 ms QRS Dur : 094 ms QT Int : 386 ms P-R-T Axes : 050 -43 103 degrees QTc Int : 461 ms Sinus rhythm. with frequent and consecutive premature ventricular complexes. Possible Left atrial enlargement Left axis deviation Left ventricular hypertrophy ST & T wave abnormality, consider lateral ischemia Abnormal ECG When compared with ECG of 20-FEB-2016 12:01, Sinus rhythm. has replaced Atrial fibrillation. Unconfirmed Result
--- NOTE | 2016-04-25 07:51 | Diag Imaging Result Document ---
PROCEDURE NAME: CHEST-PORTABLE - 04/25/2016 PORTABLE CHEST: COMPARISON: Compared to 03/02/2016 FINDINGS: No change in the right-sided double-lumen catheter or in the left-sided pacemaker. The lungs are well expanded. The heart remains enlarged. Vascular distention is less pronounced than the prior study. There may be tiny pleural effusions. These are smaller than the prior exam. No consolidation. No free air beneath the diaphragm. IMPRESSION: Findings are much improved compared to the prior exam although cardiomegaly remains and there maybe tiny pleural effusions.
--- NOTE | 2016-04-25 08:42 | Diag Imaging Result Document ---
PROCEDURE NAME: HEAD W/O CONTRAST - 04/25/2016 CT OF THE HEAD WITHOUT CONTRAST: FINDINGS: There is a somewhat empty sella. There is generalized cerebral atrophy. There is a somewhat hyperdense mass in the inferior right basal ganglia region. This is associated with a calcification medially and has not changed in appearance since the previous study of 02/18/2016. This may be extra-axial arising from the lesser wing of the sphenoid bone. It measures 3 cm in AP dimension. There is some subtle differences in the apparent density of the CSF over the convexity of both hemispheres. There is no change in volume appreciable or effacement of the sulci or gyri. The differences may all be technical. No contrast imaging for MRI was performed subsequent to the previous study of 02/18/2016, at least not according to our records. Further evaluation of the brain with and without gadolinium with MRI is recommended. IMPRESSION: 1. Right sphenoid wing/parasellar meningioma. 2. Questionable chronic subdural fluid collections. Advise further evaluation with MRI as described above.
== END 2016-04-25 05:12 | disposition home or self-care (01) ==
LOC: ED 02:23
DX: R41.82 Altered mental status, unspecified (principal); R94.31 Abnormal electrocardiogram [ECG] [EKG]; R06.02 Shortness of breath; D32.9 Benign neoplasm of meninges, unspecified; R53.83 Other fatigue; R07.9 Chest pain, unspecified; M79.643 Pain in unspecified hand; I25.10 Atherosclerotic heart disease of native coronary artery without angina pectoris; Z79.899 Other long term (current) drug therapy; E78.5 Hyperlipidemia, unspecified; I25.2 Old myocardial infarction; K21.9 Gastro-esophageal reflux disease without esophagitis; I12.0 Hypertensive chronic kidney disease with stage 5 chronic kidney disease or end stage renal disease; N18.6 End stage renal disease; Z99.2 Dependence on renal dialysis; E11.9 Type 2 diabetes mellitus without complications; Z79.02 Long term (current) use of antithrombotics/antiplatelets
CPT/HCPCS: 70450; 71010; 80053; 81001; 82140; 82550; 82805; 83735; 83880; 84484; 85025; 85610; 85730; 93005; G0480; 80320; 80324; 80345; 80346; 80349; 80353; 80358; 80361; 80365; 83992